=== PATIENT | male | born 1950 | race African-American/Black ===

== ENCOUNTER 2017-03-10 03:01 | Emergency (ER) | payer MEDICARE, MEDICAID ==
[~2017-03-10] VITALS: Ht 180.3 cm; Wt 106.6 kg
[~2017-03-10 03:01] MED LIST: ASPIR 8181 M1; ASPIRIN ADULT L81 M1 PO; LIPITOR20 MG PO; LIPITOR40 MG; MOTRIN PO; VICODIN 5/500 M1 TAB
[2017-03-10 03:32] VITALS: BP 120/72
--- NOTE | 2017-03-10 03:44 | NUR ---
PATIENT AMBULATED TO ER BED 3.
--- NOTE | 2017-03-10 04:05 | NUR ---
Patient being evaluated by physician at bedside with orders and carried out.
[2017-03-10] MEDS ORDERED: METOCLOPRAMIDE 10 MG/2 ML INJ VIAL IM ONE (04:10)
[2017-03-10] MEDS ORDERED: KETOROLAC 60 MG/2 ML VIAL IM ONE (04:10)
--- NOTE | 2017-03-10 04:44 | NUR ---
Patient discharged with v/s stable. Written and verbal after care instructions given and explained. Patient alert, oriented and verbalized understanding of instructions. Ambulatory with steady gait. All questions addressed prior to discharge. ID band removed. Patient advised to follow up with PMD. Rx of TRAMADOL 50MG AND ZOFRAN ODT 4MG given. Patient educated on indication of medication including possible reaction and side effects. Opportunity to ask questions provided and answered.
[2017-03-10 04:45] VITALS: BP 122/71
[2017-05-26] MEDS ORDERED: NITROGLYCE0.4 MG/Act SL (10:05)
[2017-05-26] MEDS ORDERED: LISINOPRIL2.5 M1 PO (10:05)
[2017-05-26] MEDS ORDERED: CARVEDILOL3.125 MG PO (10:05)
[2017-05-26] MEDS ORDERED: FOLGARD1 TAB PO (10:05)
[2017-05-26] MEDS ORDERED: NAPROXEN375 M2 PO (10:05)
[2017-05-27] MEDS ORDERED: NORCO 325 MG-51 TAB PO (08:26)
== END 2017-03-10 04:44 | disposition home or self-care (01) ==
LOC: MED 03:01
DX: K52.9 Noninfective gastroenteritis and colitis, unspecified (principal); I10 Essential (primary) hypertension
CPT/HCPCS: 96372; 99284; J1885; J2765

== ENCOUNTER 2017-05-25 20:44 | Inpatient (IN) | payer OTHER, MEDICARE ==
[~2017-05-25] VITALS: Ht 180.3 cm; Wt 88.9 kg
[~2017-05-25 20:44] MED LIST changes: +ASPI81CT27 PO; -ASPIR 8181 M1; -ASPIRIN ADULT L81 M1 PO; +ATOR20TA PO; -LIPITOR20 MG PO; -LIPITOR40 MG; -VICODIN 5/500 M1 TAB
[2017-05-25 20:48] VITALS: BP 160/94
--- NOTE | 2017-05-25 22:06 | NUR ---
Patient to bed 08.
--- NOTE | 2017-05-25 22:34 | NUR ---
Dr. Chavira evaluating patient at bedside.
[2017-05-25] MEDS ORDERED: ONDANSETRON 4 MG/2 ML VIAL IVP ONE (22:45)
[2017-05-25] MEDS ORDERED: MORPHINE SULFATE 4 MG/ML SYR IVP ONE (22:45)
[2017-05-25 23:07] LABS: APPEARANCE,URINE CLEAR (CLEAR); BILIRUBIN,URINE NEGATIVE (NEGATIVE); BLOOD, URINE NEGATIVE (NEGATIVE); COLOR,URINE YELLOW (YELLOW); LEUKOCYTE ESTERASE ,URINE NEGATIVE (NEGATIVE); NITRITE, URINE NEGATIVE (NEGATIVE); PH,URINE 6.5 (5.0-9.0); PROTEIN,URINE 1+ (NEGATIVE); UGLUCOSE NEGATIVE (NEGATIVE)
[2017-05-25 23:12] LABS: BASOPHILS # (AUTO) 0.1 K/uL (0.00-0.22); BASOPHILS % (AUTO) 1.3 % (0.0-2.0); EOSINOPHILS # (AUTO) 0.2 K/uL (0-0.4); EOSINOPHILS % (AUTO) 2.3 % (0.0-4.0); HEMOGLOBIN 15.1 g/dL (12.0-18.0); LYMPHOCYTES # (AUTO) 1.3 K/uL (2.0-11.5); LYMPHOCYTES % (AUTO) 14.7 % (20.5-51.1); MEAN CORPUSCULAR HEMOGLOBIN 28 pg (27-31); MEAN CORPUSCULAR HGB CONC 32 g/dL (33-37); MEAN CORPUSCULAR VOLUME 86 fL (80-94); MONOCYTES # (AUTO) 0.7 K/uL (0.8-1.0); MONOCYTES % (AUTO) 7.8 % (1.7-9.3); NEUTROPHILS # (AUTO) 6.7 K/uL (1.8-7.7); NEUTROPHILS % (AUTO) 73.9 % (42.2-75.2); PLATELET COUNT (AUTO) 205 K/uL (140-450); RED BLOOD CELL COUNT(AUTO) 5.48 MIL/uL (4.20-6.10); RED CELL DISTRIBUTION WIDTH 15.6 % (11.6-13.7)
[2017-05-25 23:14] LABS: CALCIUM 8.8 mg/dL (8.5-10.1); CARBON DIOXIDE 27.8 mmol/L (21-32); CREATININE 1.4 mg/dL (0.7-1.3); POTASSIUM 3.8 mmol/L (3.5-5.1)
[2017-05-25 23:21] LABS: BACTERIA,URINE OCCASSIONAL /HPF (None Seen); MUCUS,URINE 1+ /LPF (None Seen); RBC,URINE 3-10 (FEW) /HPF (0-5); SQUAMOUS EPITHELIAL CELL,UR 0-3 (FEW) /LPF (0-3 (FEW)); WBC,URINE 0-5 (RARE) /HPF (0-5)
[2017-05-25 23:23] LABS: ALBUMIN 4.3 g/dL (3.4-5.0); TOTAL BILIRUBIN 0.5 mg/dL (0.0-1.0); TOTAL PROTEIN, SERUM 7.6 g/dL (6.4-8.2)
[2017-05-26] MEDS ORDERED: NACL 0.9% 1,000 ML IV ONE (01:20)
[2017-05-26] MEDS ORDERED: ONDANSETRON 4 MG/2 ML VIAL IVP PRN (01:20)
[2017-05-26] MEDS ORDERED: ACETAMINOPHEN 325 MG TAB PO PRN (01:20)
[2017-05-26] MEDS ORDERED: KETOROLAC 30 MG/ML VIAL IVP ONE (01:20)
[2017-05-26] MEDS ORDERED: MORPHINE SULFATE 2 MG/ML SYR IVP PRN (01:20)
--- NOTE | 2017-05-26 02:25 | NUR ---
Kendra eaton in EDM - 05/26/17 at 0230 by [email or web address] Pt transferred to ICU via WHEEL CHAIR BY TECH. FLAVIA MODI IV HEP LOCK. PAIN 01/19.
[2017-05-26 02:30] VITALS: BP 124/85
--- NOTE | 2017-05-26 02:30 | NUR ---
Pt transferred to ICU via WHEEL CHAIR BY TECH. theresa GLASGOW. PAIN 01/19. IV HEP LOCK. REPORT GIVEN TO RITA SHIRLEY
--- NOTE | 2017-05-26 02:30 | NUR ---
ADMITTED A 67 YEARS OLD MALE TO THE MED-SURG UNIT. PATIENT AWAKE ALERT ORIENTED X4. NO S/S OF ACUTE DISTRESS NOTED, RESPIRATION EVEN AND UNLABORED. IV PATENT AND INTACT, FLUSHED WITH NORMAL SALINE. PATIENT DENIES PAIN AT THIS TIME. PLAN OF CARE DISCUSSED, VERBALIZED UNDERSTANDING. CALL LIGHT WITHIN REACH, SAFETY MEASURE ENSURED, WILL CONTINUE TO MONITOR.
[2017-05-26] MEDS: NACL 0.9% 1,000 ML IV SCH ×3 (03:04→21:18)
--- NOTE | 2017-05-26 04:30 | NUR ---
PATIENT ASLEEP IN BED, NO S/S OF ACUTE DISTRESS NOTED, RESPIRATION EVEN AND UNLABORED, SAFETY MEASURE ENSURED WILL CONTINUE TO MONITOR.
[2017-05-26] MEDS: MORPHINE SULFATE 4 MG/ML SYR IVP PRN ×2 (05:37→21:48)
--- NOTE | 2017-05-26 05:37 | NUR ---
PATIENT REPORTED ABDOMINAL PAIN 06/21. MEDICATED ORDERED. WILL CONTINUE TO MONITOR.
--- NOTE | 2017-05-26 06:01 | NUR ---
PATIENT RESTING BED, REASSESSED PAIN LEVEL, STATED," IT IS BETTER." NO S/S OF ACUTE DISTRESS NOTED, RESPIRATION EVEN AND UNLABORED, SAFETY MEASURE ENSURED WILL CONTINUE TO MONITOR.
[2017-05-26 06:37] LABS: HEMATOCRIT 46.8 % (36-52); HEMOGLOBIN 14.9 g/dL (12.0-18.0); MEAN CORPUSCULAR HEMOGLOBIN 28 pg (27-31); MEAN CORPUSCULAR HGB CONC 32 g/dL (33-37); MEAN CORPUSCULAR VOLUME 86 fL (80-94); PLATELET COUNT (AUTO) 204 K/uL (140-450); RED BLOOD CELL COUNT(AUTO) 5.43 MIL/uL (4.20-6.10); RED CELL DISTRIBUTION WIDTH 15.4 % (11.6-13.7)
[2017-05-26 06:45] LABS: ANION GAP 14.2 (8-16); CALCIUM 8.4 mg/dL (8.5-10.1); CARBON DIOXIDE 23.9 mmol/L (21-32); CREATININE 1.5 mg/dL (0.7-1.3); POTASSIUM 4.1 mmol/L (3.5-5.1); TOTAL BILIRUBIN 0.5 mg/dL (0.0-1.0); TOTAL PROTEIN, SERUM 7.3 g/dL (6.4-8.2)
[2017-05-26 07:07] LABS: BAND % (MANUAL) 1 % (0-8); BASOPHILS % (MANUAL) 0 % (0-2); EOSINOPHILS % (MANUAL) 0 % (0-4); LYMPHOCYTES % (MANUAL) 13 % (20-46); MONOCYTES % (MANUAL) 7 % (5-12); NEUTROPHILS % (MANUAL) 79 (43-65); PLATELET ESTIMATE ADEQUATE
--- NOTE | 2017-05-26 07:20 | NUR ---
ENDORSED PLAN OF CARE TO DAY RN. PATIENT IS IN STABLE CONDITION.
--- NOTE | 2017-05-26 07:20 | NUR ---
ASSUMED CONTINUITY OF CARE. NO SIGNS AND SYMPTOMS OF ACUTE DISTRESS NOTED. INITIAL ASSESSMENT DONE. KEEP COMFORTABLE ON BED. EXPLAINED DIAGNOSIS, PLAN OF CARE, PAIN MANAGEMENT TEACHING, USE OF CALL LIGHT/BED/TV/BATHROOM. VERBALIZED UNDERSTANDING. CALL LIGHT WITHIN REACH.
[2017-05-26 08:00] VITALS: BP 131/89
--- NOTE | 2017-05-26 08:00 | NUR ---
Patient's Plan of Care was discussed and reviewed with PAPER CONE DRYING MACHINE OPERATOR: BRANDON ZARATE
[2017-05-26] MEDS: ATORVASTATIN 20 MG TAB PO SCH (08:46)
[2017-05-26] MEDS: ASPIRIN 81 MG TAB.CHEW PO SCH (08:46)
[2017-05-26] MEDS: ENOXAPARIN 30 MG/0.3 ML SYR SUBQ SCH (08:47)
--- NOTE | 2017-05-26 09:40 | NUR ---
DR. JARA CAME, INFORMED OF PT. HOME MEDICATIONS CONTINUATION. DR. JARA SAID SHE WILL TAKE CARE OF IT.
[2017-05-26] MEDS ORDERED: [UNRECOGNIZED DRUG - CODE] PO (10:05)
[2017-05-26] MEDS ORDERED: VIT D2 PO (10:05)
[2017-05-26] MEDS ORDERED: LISI2.5T5 PO (10:05)
[2017-05-26] MEDS ORDERED: NITR0.4S14 SL (10:05)
[2017-05-26] MEDS ORDERED: MULT-1993 PO (10:05)
[2017-05-26] MEDS ORDERED: CARV3.122 PO (10:05)
[2017-05-26] MEDS ORDERED: HYDROcodone/APAP 10/325 MG 1 TAB TAB PO PRN ×2 (10:25)
--- NOTE | 2017-05-26 14:25 | NUR ---
DR. ARNOLD CAME, SEEN PT. AND CHECKED PT. CHART.
--- NOTE | 2017-05-26 18:53 | NUR ---
CALLED [facility] AND SPOKE TO MANASA REGARDING PT. CONSULT. PER BRADLEY LEDEZMA DR. 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 LEFT CALL BACK NUMBER AND MESSAGE. INFORMED CHARGE NURSE NESS SWENSON.
--- NOTE | 2017-05-26 19:06 | NUR ---
BEDSIDE REPORT GIVEN TO NETO SWENSON. IVF INFUSING WELL. IN STABLE CONDITION.
--- NOTE | 2017-05-26 19:10 | NUR ---
RECEIVED REPORTS FROM DAY RN. PATIENT RESTING IN BED, FAMILY MEMBERS AT BEDSIDE. PATIENT AWAKE ALERT ORIENTED X4, NO S/S OF ACUTE DISTRESS NOTED, IV PATENT AND INTACT, INFUSING NORMAL SALINE AT 100ML/HR. PER DAY SHIFT RN, JUN VAUGHN AWARE OF PATIENT'S HOME MEDICATIONS. CALL LIGHT WITHIN REACH, SAFETY MEASURE ENSURED, WILL CONTINUE TO MONITOR.
--- NOTE | 2017-05-26 22:07 | NUR ---
PATIENT STATED ABDOMINAL PAIN 06/21. BP 119/73, HR 64. PAIN MEDICATION GIVEN ORDERED, WILL CONTINUE TO MONITOR.
--- NOTE | 2017-05-26 23:35 | NUR ---
PATIENT ASLEEP IN BED, NO S/S OF ACUTE DISTRESS NOTED, RESPIRATION EVEN AND UNLABORED, CALL LIGHT WITHIN REACH, SAFETY MEASURE ENSURED, WILL CONTINUE TO MONITOR
[2017-05-27] VITALS: BP 117/80
--- NOTE | 2017-05-27 01:30 | NUR ---
PATIENT ASLEEP IN BED, NO S/S OF ACUTE DISTRESS NOTED, RESPIRATION EVEN AND UNLABORED, CALL LIGHT WITHIN REACH, SAFETY MEASURE ENSURED, WILL CONTINUE TO MONITOR.
[2017-05-27] MEDS: NACL 0.9% 1,000 ML IV SCH (02:08)
--- NOTE | 2017-05-27 02:15 | NUR ---
STRAINED 300ML URINE, NO STONE WAS COLLECTED.
--- NOTE | 2017-05-27 04:21 | NUR ---
PATIENT ASLEEP IN BED, NO S/S OF ACUTE DISTRESS NOTED, RESPIRATION EVEN AND UNLABORED, CALL LIGHT WITHIN REACH, SAFETY MEASURE ENSURED, WILL CONTINUE TO MONITOR.
--- NOTE | 2017-05-27 05:37 | NUR ---
STRAINED 350ML URINE, NO STONE WAS COLLECTED
[2017-05-27 05:49] LABS: BASOPHILS # (AUTO) 0.1 K/uL (0.00-0.22); BASOPHILS % (AUTO) 2.1 % (0.0-2.0); EOSINOPHILS # (AUTO) 0.3 K/uL (0-0.4); EOSINOPHILS % (AUTO) 4.5 % (0.0-4.0); HEMATOCRIT 41.1 % (36-52); HEMOGLOBIN 13.3 g/dL (12.0-18.0); LYMPHOCYTES # (AUTO) 1.4 K/uL (2.0-11.5); MEAN CORPUSCULAR HEMOGLOBIN 28 pg (27-31); MEAN CORPUSCULAR HGB CONC 33 g/dL (33-37); MEAN CORPUSCULAR VOLUME 86 fL (80-94); MONOCYTES # (AUTO) 0.5 K/uL (0.8-1.0); MONOCYTES % (AUTO) 7.1 % (1.7-9.3); NEUTROPHILS # (AUTO) 4.4 K/uL (1.8-7.7); NEUTROPHILS % (AUTO) 65.3 % (42.2-75.2); PLATELET COUNT (AUTO) 185 K/uL (140-450); RED BLOOD CELL COUNT(AUTO) 4.78 MIL/uL (4.20-6.10); RED CELL DISTRIBUTION WIDTH 15.8 % (11.6-13.7); WHITE BLOOD COUNT (AUTO) 6.7 K/uL (4.8-10.8)
[2017-05-27 06:31] LABS: ANION GAP 11.3 (8-16); CALCIUM 7.7 mg/dL (8.5-10.1); CARBON DIOXIDE 24.5 mmol/L (21-32); CREATININE 1.1 mg/dL (0.7-1.3); POTASSIUM 3.8 mmol/L (3.5-5.1)
--- NOTE | 2017-05-27 07:02 | NUR ---
PATIENT HAS BEEN SCREENED AND CATEGORIZED MODERATE NUTRITION RISK. PATIENT WILL BE SEEN WITHIN 3-5 DAYS OF ADMISSION. 05/28/17-05/30/17 KYLEE MARTINEZ MS, RDN
--- NOTE | 2017-05-27 07:17 | NUR ---
ENDORSED PLAN OF CARE TO DAY RN, PATIENT IS IN STABLE CONDITION.
[2017-05-27] MEDS ORDERED: MORPHINE SULFATE 2 MG/ML SYR IVP PRN (07:55)
[2017-05-27 08:00] VITALS: BP 119/79
[2017-05-27] MEDS ORDERED: ACET-2869 PO (08:26)
[2017-05-27] MEDS: ATORVASTATIN 20 MG TAB PO SCH (08:26)
[2017-05-27] MEDS: ASPIRIN 81 MG TAB.CHEW PO SCH (08:26)
[2017-05-27] MEDS: ENOXAPARIN 30 MG/0.3 ML SYR SUBQ SCH (08:28)
--- NOTE | 2017-05-27 09:00 | NUR ---
EXPLAINED ABOUT MD D/C ORDER, DIAGNOSIS, D/C INSTRUCTIONS AND TEACHING, MD D/C PRESCRIPTION LIST EDUCATION, PAIN MANAGEMENT TEACHING, MD FOLLOW-UP AND PHONE NUMBER WAS GIVEN, DIET. VERBALIZED UNDERSTANDING.
--- NOTE | 2017-05-27 10:29 | NUR ---
CALLED PT. SISTER -SOUTH AND INFORMED THAT PT. WILL BE D/C TODAY.
--- NOTE | 2017-05-27 11:25 | NUR ---
D/C VIA WHEELCHAIR ACCOMPANIED BY PT. SISTER -SOUTH. AWAKE, ALERT, AND ORIENTED X4. SPEECH CLEAR. NO C/O PAIN. NO SOB, NOTED. IN STABLE CONDITION. PT. OWN MEDS THAT WAS KEEPED IN PHARMACY WAS GIVEN TO PT. SISTER ABRAHAN. INFORMED CHARGE NURSE NESS SWENSON.
--- NOTE | 2017-05-28 12:43 | NUR ---
RETRO REVIEW FAXED ER REPORT AND H&P TO [facility] [phone] PHONE DEANA [phone]
== END 2017-05-27 11:25 | disposition home or self-care (01) | DRG 465 ==
LOC: MED 20:44 → MTU 05-26 01:21
PROVIDERS: ADMIT Hospitalist; ATTEND Hospitalist
DX: N20.0 Calculus of kidney (principal); I10 Essential (primary) hypertension; E78.5 Hyperlipidemia, unspecified; I20.9 Angina pectoris, unspecified; Z79.82 Long term (current) use of aspirin; Z79.899 Other long term (current) drug therapy
CPT/HCPCS: 36415; 80048; 80053; 81001; 82150; 83690; 85025; 87081; 96361; 96374; 96375; 99285; J1650; J1885; J2270; J2405; J7030

== ENCOUNTER 2017-07-10 14:05 | Emergency (ER) | payer MEDICARE, OTHER ==
[~2017-07-10] VITALS: Ht 180.3 cm; Wt 92.1 kg
[~2017-07-10 14:05] MED LIST changes: +ACET-2869 PO; +CARV3.122 PO; +LISI2.5T5 PO; -MOTRIN PO; +MULT-1993 PO; +NITR0.4S14 SL; +VIT D2 PO; +[UNRECOGNIZED DRUG - CODE] PO
--- NOTE | 2017-07-10 14:05 | NUR ---
Patient was BIBA at this time.
[2017-07-10 14:30] VITALS: BP 127/84
--- NOTE | 2017-07-10 14:54 | NUR ---
Patient was taken to bed 06 via gurney per EMS.
--- NOTE | 2017-07-10 15:00 | NUR ---
PATIENT BIBA DUE TO LLQ PAIN X TODAY. PT STATES HE FEELS NAUSEATED BUT DENIES V/D; SKIN IS PINK/WARM/DRY; AAOX4 WITH EVEN AND STEADY GAIT; LUNGS CLEAR BL; HR EVEN AND REGULAR; PT DENIES ANY FEVER, CP, SOB, OR COUGH AT THIS TIME; PATIENT STATES PAIN OF 9/10 AT THIS TIME;PATIENT POSITIONED FOR COMFORT; HOB ELEVATED; BEDRAILS UP X2; BED DOWN.ALL MONITORS IN PLACED; ER MD MADE AWARE OF PT STATUS.
[2017-07-10] MEDS: KETOROLAC 30 MG/ML VIAL IVP ONE (15:10)
[2017-07-10 15:13] LABS: BASOPHILS # (AUTO) 0.2 K/uL (0.00-0.22); EOSINOPHILS # (AUTO) 0.3 K/uL (0-0.4); HEMATOCRIT 47.4 % (36-52); HEMOGLOBIN 14.8 g/dL (12.0-18.0); LYMPHOCYTES # (AUTO) 0.6 K/uL (2.0-11.5); MEAN CORPUSCULAR HEMOGLOBIN 27 pg (27-31); MEAN CORPUSCULAR HGB CONC 31 g/dL (33-37); MEAN CORPUSCULAR VOLUME 86 fL (80-94); MONOCYTES # (AUTO) 0.5 K/uL (0.8-1.0); NEUTROPHILS # (AUTO) 3.5 K/uL (1.8-7.7); PLATELET COUNT (AUTO) 213 K/uL (140-450); RED BLOOD CELL COUNT(AUTO) 5.51 MIL/uL (4.20-6.10); RED CELL DISTRIBUTION WIDTH 14.8 % (11.6-13.7); WHITE BLOOD COUNT (AUTO) 5.1 K/uL (4.8-10.8)
[2017-07-10 15:25] LABS: APPEARANCE,URINE HAZY (CLEAR); BILIRUBIN,URINE NEGATIVE (NEGATIVE); BLOOD, URINE 3+ (NEGATIVE); COLOR,URINE YELLOW (YELLOW); LEUKOCYTE ESTERASE ,URINE NEGATIVE (NEGATIVE); NITRITE, URINE NEGATIVE (NEGATIVE); PH,URINE 5.5 (5.0-9.0); UGLUCOSE NEGATIVE (NEGATIVE)
[2017-07-10 15:28] LABS: RBC,URINE TOO NUMEROUS TO COUN /HPF (0-5); WBC,URINE 0-5 /HPF (0-5)
[2017-07-10 15:28] LABS: ANION GAP 13.5 (8-16); CARBON DIOXIDE 24.2 mmol/L (21-32); POTASSIUM 3.7 mmol/L (3.5-5.1)
[2017-07-10 15:35] LABS: ALBUMIN 3.9 g/dL (3.4-5.0); TOTAL BILIRUBIN 0.4 mg/dL (0.0-1.0)
[2017-07-10] MEDS: MORPHINE SULFATE 4 MG/ML SYR IVP ONE (17:18)
[2017-07-10 17:40] VITALS: BP 126/74
--- NOTE | 2017-07-10 17:40 | NUR ---
Patient discharged with v/s stable. Written and verbal after care instructions given and explained. Patient alert, oriented and verbalized understanding of instructions. Ambulatory with steady gait. All questions addressed prior to discharge. ID band removed. Patient advised to follow up with PMD. Rx of NORCO AND ZOFRAN given. Patient educated on indication of medication including possible reaction and side effects. Opportunity to ask questions provided and answered.
== END 2017-07-10 17:40 | disposition home or self-care (01) ==
LOC: MED 14:05
DX: N20.0 Calculus of kidney (principal); I10 Essential (primary) hypertension; Z79.899 Other long term (current) drug therapy
CPT/HCPCS: 36415; 74177; 80053; 81001; 83690; 85025; 96374; 96375; 99285; J1885; J2270; Q9967

== ENCOUNTER 2018-01-03 08:15 | Emergency (ER) | payer MEDICARE, OTHER ==
[~2018-01-03] VITALS: Ht 180.3 cm; Wt 93.2 kg
[~2018-01-03 08:15] MED LIST changes: -ASPI81CT27 PO; +ASPI81CT95 PO; +NAPR-1641 PO; -[UNRECOGNIZED DRUG - CODE] PO
[2018-01-03 08:26] VITALS: BP 130/76
--- NOTE | 2018-01-03 08:26 | NUR ---
PT AMBULATES TO BED 3
--- NOTE | 2018-01-03 08:27 | NUR ---
67/M BIB SISTER C/O COUGH , SORE THROAT & MID CHEST PAIN X 5 DAYS. PT STATES HAS N & D TODAY. SKIN IS PINK/WARM/DRY; AAOX4 WITH EVEN AND STEADY GAIT; LUNGS CLEAR BL; PT DENIES ANY FEVER, CP, SOB, OR COUGH AT THIS TIME; PATIENT STATES PAIN OF 0/10 AT THIS TIME; PATIENT POSITIONED FOR COMFORT; HOB ELEVATED; BEDRAILS UP X2; BED DOWN. ER MD MADE AWARE OF PT STATUS.
--- NOTE | 2018-01-03 08:35 | NUR ---
Patient being evaluated by DR HANLEY at bedside.
[2018-01-03 08:52] VITALS: BP 115/73
--- NOTE | 2018-01-03 08:52 | NUR ---
Patient discharged with v/s stable. Written and verbal after care instructions given and explained. Patient alert, oriented and verbalized understanding of instructions. Ambulatory with steady gait. All questions addressed prior to discharge. ID band removed. Patient advised to follow up with PMD. Rx of PREDNISONE, ZOFRAN&NORCO given. Patient educated on indication of medication including possible reaction and side effects. Opportunity to ask questions provided and answered.
--- NOTE | 2018-01-03 08:53 | NUR ---
Kendra eaton in [facility] - 01/03/18 at 0854 by [email or web address] Patient being evaluated by DR HANLEY at bedside.
== END 2018-01-03 08:52 | disposition home or self-care (01) ==
LOC: MED 08:15
DX: R05 Cough (principal); R19.7 Diarrhea, unspecified; R50.9 Fever, unspecified; I10 Essential (primary) hypertension; Z79.899 Other long term (current) drug therapy; Z79.82 Long term (current) use of aspirin; Z87.442 Personal history of urinary calculi
CPT/HCPCS: 99283

== ENCOUNTER 2019-09-06 21:41 | Emergency (ER) | payer MEDICARE, OTHER ==
[~2019-09-06] VITALS: Ht 180.3 cm; Wt 92.5 kg
[~2019-09-06 21:41] MED LIST changes: -ACET-2869 PO; +HYDR-5122 PO
[2019-09-06 21:45] VITALS: BP 129/77
--- NOTE | 2019-09-06 21:45 | NUR ---
TO BED # 09 AMBULATORY
[2019-09-06] MEDS ORDERED: KETOROLAC 60 MG/2 ML VIAL IM ONE (22:00)
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
[2019-09-06 22:27] VITALS: BP 129/77
== END 2019-09-06 22:27 | disposition home or self-care (01) ==
LOC: MED 21:41
DX: S13.9XXA Sprain of joints and ligaments of unspecified parts of neck, initial encounter (principal); I10 Essential (primary) hypertension; Z87.442 Personal history of urinary calculi; Z79.82 Long term (current) use of aspirin; Z79.899 Other long term (current) drug therapy; V89.2XXA Person injured in unspecified motor-vehicle accident, traffic, initial encounter; Y93.89 Activity, other specified; Y92.89 Other specified places as the place of occurrence of the external cause; Y99.8 Other external cause status
CPT/HCPCS: 96372; 99283; J1885

== ENCOUNTER 2020-10-17 15:07 | Observation (INO) | payer OTHER, MEDICARE ==
[~2020-10-17] VITALS: Ht 180.3 cm; Wt 96.2 kg
[~2020-10-17 15:07] MED LIST changes: -NITR0.4S14 SL; +NITR12SP3 SL
[2020-10-17 15:23] VITALS: BP 113/78
--- NOTE | 2020-10-17 15:27 | NUR ---
PT WAITING OUTSIDE IN COVID TENT FOR AN OPEN ISOLATION ROOM.
[2020-10-17] MEDS ORDERED: ONDANSETRON 4 MG/2 ML VIAL IVP ONE (15:50)
[2020-10-17] MEDS ORDERED: NACL 0.9% 1,000 ML IV SCH (15:50)
--- NOTE | 2020-10-17 16:03 | NUR ---
PT AMBULATED TO BED 8, STEADY GAIT.
[2020-10-17 16:26] LABS: BASOPHILS % (AUTO) 0.6 % (0.0-2.0); EOSINOPHILS % (AUTO) 0.7 % (0.0-4.0); HEMATOCRIT 56.7 % (36-52); HEMOGLOBIN 18.6 g/dL (12.0-18.0); LYMPHOCYTES # (AUTO) 1.1 K/uL (2.0-11.5); LYMPHOCYTES % (AUTO) 31.9 % (20.5-51.1); MEAN CORPUSCULAR HEMOGLOBIN 28 pg (27-31); MEAN CORPUSCULAR HGB CONC 33 g/dL (33-37); MEAN CORPUSCULAR VOLUME 83.7 fL (80-94); MONOCYTES # (AUTO) 0.6 K/uL (0.8-1.0); MONOCYTES % (AUTO) 15.8 % (1.7-9.3); NEUTROPHILS # (AUTO) 1.8 K/uL (1.8-7.7); PLATELET COUNT (AUTO) 193 K/uL (140-450); RED BLOOD CELL COUNT(AUTO) 6.77 MIL/uL (4.20-6.10); RED CELL DISTRIBUTION WIDTH 16.9 % (11.6-13.7); WHITE BLOOD COUNT (AUTO) 3.6 K/uL (4.8-10.8)
[2020-10-17 16:27] LABS: APPEARANCE,URINE CLEAR (CLEAR); BILIRUBIN,URINE 1+ (NEGATIVE); BLOOD, URINE 1+ (NEGATIVE); COLOR,URINE YELLOW (YELLOW); LEUKOCYTE ESTERASE ,URINE NEGATIVE (NEGATIVE); NITRITE, URINE NEGATIVE (NEGATIVE); PH,URINE 5.5 (5.0-9.0); UGLUCOSE NEGATIVE (NEGATIVE)
[2020-10-17 16:39] LABS: COARSE GRANULAR CASTS,URINE 0-10 /LPF (None Seen); WBC,URINE 0-5 /HPF (0-5)
[2020-10-17 16:40] LABS: ALBUMIN 4.8 g/dL (3.4-5.0); ANION GAP 18.8 (8-16); CARBON DIOXIDE 23.3 mmol/L (21-32); POTASSIUM 3.1 mmol/L (3.5-5.1); TOTAL BILIRUBIN 0.6 mg/dL (0.0-1.0)
[2020-10-17] MEDS ORDERED: NACL 0.9% 1,000 ML IV ONE (16:55)
[2020-10-17] MEDS ORDERED: POTASSIUM CHLORIDE 20% 40 MEQ/15 ML UDC PO ONE (16:55)
[2020-10-17] MEDS ORDERED: WARF-101 PO (17:21)
[2020-10-17] MEDS ORDERED: ATOR10TA PO (17:21)
--- NOTE | 2020-10-17 17:22 | NUR ---
FLU AND COVID PCR & DARWIN SWAB COLLECTED AND SENT TO LAB
[2020-10-17] MEDS ORDERED: cefTRIAXone 1,000 MG VIAL ONE (17:28)
[2020-10-17] MEDS ORDERED: POTASSIUM CHLORIDE 10 MEQ TABER PO PRN (17:45)
[2020-10-17] MEDS ORDERED: ONDANSETRON 4 MG/2 ML VIAL IVP PRN (17:45)
[2020-10-17] MEDS ORDERED: MAGNESIUM OXIDE 400 MG TAB PO PRN (17:45)
[2020-10-17] MEDS ORDERED: HYDROcodone/APAP 5/325 MG 1 TAB TAB PO PRN (17:45)
[2020-10-17] MEDS ORDERED: MAG SULF 2000 MG/WATER PREMIX 50 ML IV PRN (17:45)
[2020-10-17] MEDS ORDERED: KCL 20 MEQ/WATER INJ PREMIX 200 ML IV PRN (17:45)
[2020-10-17] MEDS ORDERED: ACETAMINOPHEN 325 MG TAB PO PRN (17:45)
[2020-10-17] MEDS: NACL 0.9% 1,000 ML IV SCH (18:12)
--- NOTE | 2020-10-17 19:17 | NUR ---
RECEIVED REPORT FROM FERN JAY FOR CONTINUATION OF CARE.
--- NOTE | 2020-10-17 19:39 | NUR ---
PT IS LAYING ON HIS LEFT SIDE, NOT IN ANY DISTRESS AT THIS TIME. BED IS LOCKED AND IN LOWEST POSITION. SIDE RAILSX1. WILL CONTINUE TO MONITOR.
--- NOTE | 2020-10-17 19:48 | NUR ---
CALLED LAB TO VERIFY THAT THEY JENNA THE BLOOD CULTURES FOR THE PT.
--- NOTE | 2020-10-17 20:30 | NUR ---
pt is resting with eyes closed. visible rise and fall of chest. pt is not in any acute distress at this time. bed is locked and in lowest position. side railsx1. will continue to monitor
--- NOTE | 2020-10-17 20:55 | NUR ---
REPORT CALLED TO [facility] FOR TRANSFER OF CARE TO MED-SURG. THE PTS BED 116 IS NOT READY TO RECEIVE THE PT AT THIS TIME.
--- NOTE | 2020-10-17 21:25 | NUR ---
CALLED [facility] TO SEE IF 116 IS CLEAN AND READY FOR THE PT
--- NOTE | 2020-10-17 21:28 | NUR ---
pt ambulated to the restroom with steady gait
--- NOTE | 2020-10-17 21:33 | NUR ---
pt ambulated back to ed room 6 with steady gait
--- NOTE | 2020-10-17 21:45 | NUR ---
Patient will be admitted to care of . Admited to MED-SURG. Will go to room 116. Belongings list completed. Report to [facility].
--- NOTE | 2020-10-17 21:45 | NUR ---
PT BROUGHT IN IN WHEELCHAIR. PT AMBULATED FROM CHAIR TO BED WITH STEADY GAIT. RECEIVED TELEPHONE REPORT FROM PRATIK AT 2124. PT IS AAOX4 BELARUSIAN SPEAKING ABLE TO MAKE NEEDS KNOWN. RESPIRATIONS ARE EQUAL AND UNLABORED ON ROOM AIR. LUNG SOUNDS ARE CLEAR. ABD IS ROUND, SOFT. BOWEL SOUNDS ACTIVE X4. LBM TODAY PER PATIENT NOTED RED ON STOOL AND TISSUE. INSTRUCT PT TO NOT FLUSH WHEN HAS BM. C/C N/V/D STARTED TODAY PER PT. DENIES ANY FEVER, COUGH OR SOB. DENIES ANY CONTACT WITH SOMEONE SICK. PT LIVES AT HOME WITH ROOM MATE. PT ADMITTED OBSERVATION. IV ON LAC 20G NS INFUSING AT 80ML/H. SKIN IS INTACT. MRSA SWAB COLLECTED AND SENT TO LAB. ORIENTED PT TO ROOM, CALL LIGHT AND STAFF. PT ON DROPLET ISO FOR R/O COVID. WAITING ON PCR. POC DISCUSSED WITH PT. PT VERBALIZED UNDERSTANDING. CALL LIGHT IS WITHIN REACH. WILL CONTINUE TO MONITOR.
[2020-10-17 22:00] VITALS: BP 104/70
--- NOTE | 2020-10-18 | NUR ---
ROUNDS MADE. PT SLEEPING COMFORTABLY IN BED WITH EYES CLOSED. CHEST RISE AND FALL NOTED. NO S/S OF DISTRESS. CALL LIGHT IS WITHIN REACH.
--- NOTE | 2020-10-18 02:03 | NUR ---
PT IS SLEEPING COMFORTABLY IN BED WITH EYES CLOSED. CHEST RISE AND FALL NOTED. CALL LIGHT IS WITHIN REACH.
[2020-10-18 04:00] VITALS: BP 117/65
--- NOTE | 2020-10-18 04:10 | NUR ---
VITAL SIGNS ARE WITHIN NORMAL LIMITS. ALL SAFETY MEASURES ARE IN PLACE. CALL LIGHT IS WITHIN REACH.
[2020-10-18] MEDS: NACL 0.9% 1,000 ML IV SCH ×2 (06:29→19:03)
--- NOTE | 2020-10-18 07:46 | NUR ---
GAVE BEDSIDE REPORT TO DAY RN. PT ENDORSED IN STABLE CONDITION.
[2020-10-18 08:00] VITALS: BP 129/76
[2020-10-18] MEDS: DOCUSATE SODIUM 100 MG GELCAP PO SCH (08:01)
--- NOTE | 2020-10-18 08:01 | NUR ---
MELLISA MEDICATIONS GIVEN PER ORDERS. MED EDUCATION GIVEN. PT VERBALIZED UNDERSTANDING. ALL NEEDS MET. CALL LIGHT IS WITHIN REACH.
--- NOTE | 2020-10-18 09:00 | NUR ---
RECEIVED REPORT FROM [facility] ELECTRONIC TEST TECHNICIAN FOR CONTINUITY OF CARE. PATIENT AWAKE A/OX4 NO S/S OF RESP DISTRESS NOTED NO COMPLAIN OF PAIN . ABLE TO MAKE NEEDS KNOWN . IV SITE LEFT AC GAUGE 20 INTACT AND PATENT. IVF INFUSING WELL. NO MEDS DUE TO BE GIVEN . VITALS STABLE WILL CONTINUE TO MONITOR.
[2020-10-18 09:02] LABS: ALBUMIN 3.7 g/dL (3.4-5.0); ANION GAP 13.7 (8-16); CARBON DIOXIDE 21.1 mmol/L (21-32); POTASSIUM 3.8 mmol/L (3.5-5.1); TOTAL BILIRUBIN 0.4 mg/dL (0.0-1.0)
--- NOTE | 2020-10-18 09:07 | NUR ---
PATIENT HAS BEEN SCREENED AND CATEGORIZED HIGH NUTRITION RISK. PATIENT WILL BE SEEN WITHIN 1-2 DAYS OF ADMISSION. 10/18/20-10/19/[address]
[2020-10-18 09:34] LABS: BASOPHILS % (AUTO) 0.3 % (0.0-2.0); EOSINOPHILS % (AUTO) 1.1 % (0.0-4.0); HEMATOCRIT 49.3 % (36-52); LYMPHOCYTES # (AUTO) 0.8 K/uL (2.0-11.5); LYMPHOCYTES % (AUTO) 25.6 % (20.5-51.1); MEAN CORPUSCULAR HEMOGLOBIN 27 pg (27-31); MEAN CORPUSCULAR HGB CONC 32 g/dL (33-37); MONOCYTES # (AUTO) 0.4 K/uL (0.8-1.0); MONOCYTES % (AUTO) 13.1 % (1.7-9.3); NEUTROPHILS # (AUTO) 1.9 K/uL (1.8-7.7); NEUTROPHILS % (AUTO) 59.9 % (42.2-75.2); PLATELET COUNT (AUTO) 157 K/uL (140-450); RED BLOOD CELL COUNT(AUTO) 5.87 MIL/uL (4.20-6.10); RED CELL DISTRIBUTION WIDTH 16.7 % (11.6-13.7); WHITE BLOOD COUNT (AUTO) 3.1 K/uL (4.8-10.8)
--- NOTE | 2020-10-18 12:00 | NUR ---
VITALS STABLE NO DISTRESS NOTED DENIES AND PAIN PCR IS PENDING STABLE CONDITION AT THIS TIME.
--- NOTE | 2020-10-18 14:00 | NUR ---
DR QUICK VISITED PATIENT , NO NEW ORDERS PCR STILL PENDING. STABLE CONDITION
[2020-10-18 16:00] VITALS: BP 126/78
--- NOTE | 2020-10-18 18:45 | NUR ---
NEW IV BAG CHANGED NS RUNNING AT THE RATE OF 80/HR
--- NOTE | 2020-10-18 19:07 | NUR ---
VITALS STABLE PCR POSITIVE NOTIFIED DR QUICK WILL CONTINUE TO MONITOR ENDORSE THE CARE TO AIR DRIER MACHINE OPERATOR
--- NOTE | 2020-10-18 19:45 | NUR ---
RECEIVED REPORT AT BEDSIDE FROM RN DAYSHIFT NURSE AT BEDSIDE FOR CONTINUITY OF CARE, PT IN STABLE CONDITION.
[2020-10-18 20:00] VITALS: BP 118/69
--- NOTE | 2020-10-18 20:30 | NUR ---
PT IN BED RESTING RESPIRATIONS ARE EVEN AND UNLABORED ON ROOM AIR. V/S FOLLOWS: T 97.0 P 81 R 20 B/P 118/69 02 96% ON ROOM AIR. ALL UNIVERSAL PRECAUTIONS IN PLACE.
--- NOTE | 2020-10-18 21:30 | NUR ---
FOOD WAS DELIVERED BY FAMILY AND DROPPED OFF AT LOBBY. FOOD WAS PICKED UP BY STAFF AND DELIVERED TO PT. PT SAT UP IN BED NO COMPLAINTS OR S/S OF PAIN AND DISTRESS ND BEGAN CONSUMING THE FOOD. ALL UNIVERSAL FALLS PRECAUTIONS IN PLACE.
[2020-10-19] VITALS: BP 109/63
--- NOTE | 2020-10-19 | NUR ---
PT IN BED RESTING WITH EYES CLOSED BUT AROUSABLE TO NAME, V/S FOLLOWS; T 97.1 P 68 R 18 B/P 109/63 02 97% ON ROOM AIR. NORMAL SALINE RUNNING ORDERED, IV SITE INTACT AND ASYMPTOMATIC NO C/O VOICED AT THIS TIME ALL DROPLET AND UNIVERSAL FALLS PRECAUTIONS IN PLACE.
--- NOTE | 2020-10-19 03:05 | NUR ---
PT SAID HE ATE ABOUT 1/2 THE FOOD DELIVERED AND THEN LATER BECAME NAUSEA AND VOMITED. PT WAS GIVEN IVP ZOFRAN FOR NAUSEA AND VOMITING.
[2020-10-19 04:00] VITALS: BP 135/82
--- NOTE | 2020-10-19 06:09 | NUR ---
PT UP AND SHOWERED INDEPENDENTLY, NO C/O VOICED IV SITE INTACT AND RUNNING N/S AT 80MLS/HR. PT RESPIRATIONS EVEN AND UNLABORED ON ROOM AIR . V/S SATBLE ALL UNIVERSAL FALLS PRECAUTIONS IN PLACE.
--- NOTE | 2020-10-19 08:00 | NUR ---
RECEIVED REPORT FROM COPPER PLATE PRINTER FOR CONTINUITY OF CARE. PATIENT ALERT AWAKE ORIENTED X4, NOT IN ANY NDISTRESS NOTED. PATIENT IS COVID POSITIVE. ISOLATION PRECAUTION OBSERVED. WITH HEPLOCK DRY AND INTACT. DENIES PAIN AND SOB. ON RA SATURATING 96%. NEEDS ATTENDED. WILL CONTINUE TO MONITOR.
[2020-10-19 08:13] LABS: BASOPHILS # (AUTO) 0.1 K/uL (0.00-0.22); BASOPHILS % (AUTO) 0.7 % (0.0-2.0); EOSINOPHILS # (AUTO) 0.1 K/uL (0-0.4); EOSINOPHILS % (AUTO) 0.8 % (0.0-4.0); HEMATOCRIT 49.9 % (36-52); HEMOGLOBIN 16.4 g/dL (12.0-18.0); LYMPHOCYTES # (AUTO) 1.5 K/uL (2.0-11.5); LYMPHOCYTES % (AUTO) 13.8 % (20.5-51.1); MEAN CORPUSCULAR HEMOGLOBIN 30 pg (27-31); MEAN CORPUSCULAR HGB CONC 33 g/dL (33-37); MEAN CORPUSCULAR VOLUME 92.2 fL (80-94); MONOCYTES # (AUTO) 1.1 K/uL (0.8-1.0); MONOCYTES % (AUTO) 10.1 % (1.7-9.3); NEUTROPHILS % (AUTO) 74.6 % (42.2-75.2); PLATELET COUNT (AUTO) 303 K/uL (140-450); RED BLOOD CELL COUNT(AUTO) 5.41 MIL/uL (4.20-6.10); RED CELL DISTRIBUTION WIDTH 15.5 % (11.6-13.7); WHITE BLOOD COUNT (AUTO) 10.7 K/uL (4.8-10.8)
[2020-10-19 08:38] LABS: ALBUMIN 2.9 g/dL (3.4-5.0); ANION GAP 11.2 (8-16); CARBON DIOXIDE 31.1 mmol/L (21-32); CREATININE 1.2 mg/dL (0.6-1.3); MAGNESIUM 1.8 mg/dL (1.8-2.4); POTASSIUM 4.3 mmol/L (3.5-5.1); TOTAL BILIRUBIN 1.7 mg/dL (0.0-1.0)
[2020-10-19 08:39] LABS: PROTHROMBIN TIME 11.1 secs (10.8-13.4)
[2020-10-19] MEDS: DOCUSATE SODIUM 100 MG GELCAP PO SCH (10:33)
[2020-10-19] MEDS: NACL 0.9% 1,000 ML IV SCH (10:33)
--- NOTE | 2020-10-19 11:38 | NUR ---
SOCIAL WORK NOTE: Patient's Orientation Unable To Assess Information Provided By SOUTH LINDA - SISTER/CAREGIVER Comments SW WAS UNABLE TO MEET PATIENT AT BEDSIDE DUE TO MEDICAL CONDITION. SW COMPLETED ASSESSMENT WITH SISTER. Principal Technical Writer, Realtionship and Phone Number SOUTH LINDA SISTER/CAREGIVER [phone] Healthcare Power of Flat Grinder Operator No Does Patient Have a POLST No Identifying Problems No Social Work Triggers Is A Social Work Consult Needed No Mandate Report Filed No Explanation Of Identifying Problems PATIENT IS A 70-YEAR-OLD MALE ADMITTED FOR ACUTE KIDNEY INJURY. PATIENT HAS PMHX OF CARDIAC DISORDERS, HYPERTENSION, AND RENAL DISEASE. Admitted From Home Pre-Admission Level Of Functioning Status Assist With ADL Level Of Functioning Comment PATIENT RECEIVES ASSISTANCE WITH PREPARING MEALS, CLEANING, GROCERY SHOPPING, AND DOCTOR'S APPOINTMENTS. Prior Resources/Services Used In Last [address] [facility] Prior Resources/Service Comments PATIENT RECEIVES 146 HOURS MONTHLY FROM [facility]. Prior DME No Prior DME Used Dialysis Comments N/A Living Situation Apartment Lives With Friend/Other Rents A Room Other Living Situation/Comment [place] LIVES WITH A ROOMMATE PER SISTER. Patient Had Caregiver Yes Name and Contact Number Of Designated Caregiver SOUTH LINDA - [phone] Home Support No Caregiver Issues Financial Issues No Known Financial Issue Referral To The Financial Counselor Needed No Factors/Needs No D/C Needs Identified Explanation And Or Other Factors Affecting/Possible DC Needs PATIENT'S SISTER STATED SHE WOULD PROVIDE TRANSPORTATION FOR PATIENT HOME. Pt/Rep Participated In Discharge Plan Yes Patient/Family Agress With Discharge Plan Yes Discharge Plan Comments TENTATIVE DISCHARGE PLAN IS FOR PATIENT TO RETURN HOME. DC Plan Status Initiated
--- NOTE | 2020-10-19 12:00 | NUR ---
PATIENT RESTING IN BED, NO C/O PAIN AND SOB. WILL CONTINUE TO MONITOR.
--- NOTE | 2020-10-19 15:07 | NUR ---
DC PLANNIN YRS OLD MALE PATIENT WAS ADMITTED FROM HOME WITH A DX OF ACUTE KIDNEY INJURY. PT HAS A HX OF HTN, HYPERCHOLESTEROLEMIA AND MS . CXR SHOWED MINIMAL RIGHT BASILAR ATELECTASIS. RAPID COVID TEST NEGATIVE PCR IS POSITIVE. BLOOD CULTURE PENDING. PT IS ON ROOM AIR SATING 97%. DC PLAN TO GO HOME WHEN STABLE CM TO FOLLOW. Addendum: 10/19/20 at 1614 by Jalyn Multani CM DC GRIEF COUNSELOR: FAXED ORDER FOR HOME HEALTH TO [facility] Addendum: 10/19/20 at 1640 by Jalyn Multani CM DC GRIEF COUNSELOR: RUBENS ZUNIGA AT [facility] WE CAN SEND THE REFERRAL FOR HOME HEALTH SAFETY EVAL TO ANY HOME HEALTH AGENCY. FAXED TO [employer]
--- NOTE | 2020-10-19 15:29 | NUR ---
10/19/20 RD INITIAL ASSESSMENT COMPLETED PLEASE REFER TO NUTRITION ASSESSMENT UNDER CARE ACTIVITY FOR ESTIMATED NUTRITIONAL NEEDS. 1. CONTINUE MECHANICAL SOFT CARDIAC DIET TOLERATED 2. CONTINUE ENSURE CLEAR TID IF PO INTAKE <75% 3. RD TO FOLLOW-UP 3-5 DAYS, MODERATE RISK SARAH HORTON, RD
[2020-10-19] MEDS ORDERED: LISI2.5T5 PO (15:30)
[2020-10-19] MEDS ORDERED: ASPI81CT95 PO (15:30)
[2020-10-19] MEDS ORDERED: APIX5TAB PO (15:30)
[2020-10-19] MEDS ORDERED: ATOR20TA PO (15:30)
[2020-10-19] MEDS ORDERED: CARV3.122 PO (15:30)
--- NOTE | 2020-10-19 17:00 | NUR ---
SEEN BY DR. QUICK WITH ORDER FOR DC TODAY AND FOR HOME SAFETYARLET.,CM AWARE.
--- NOTE | 2020-10-19 17:25 | NUR ---
PATIENT DC VIA WHEELCHAIR WITH DC INSTRUCTION AND PRESCRIPTION GIVEN AND VERBALIZED UNDERSTANDING. IN STABLE CONDITION.
== END 2020-10-19 17:20 | disposition home or self-care (01) ==
LOC: MED 15:07 → MTU 17:39
PROVIDERS: ADMIT Hospitalist; ATTEND Hospitalist
DX: U07.1 COVID-19 (principal); N17.9 Acute kidney failure, unspecified; R11.2 Nausea with vomiting, unspecified; I10 Essential (primary) hypertension; E78.5 Hyperlipidemia, unspecified; I48.0 Paroxysmal atrial fibrillation; E87.6 Hypokalemia; N39.0 Urinary tract infection, site not specified; B34.9 Viral infection, unspecified; Z91.14 Patient's other noncompliance with medication regimen; Z79.01 Long term (current) use of anticoagulants; Z79.899 Other long term (current) drug therapy
CPT/HCPCS: 36415; 71045; 80053; 81001; 83690; 83735; 85025; 85610; 87040; 87081; 87426; 87804; 96361; 96365; 96375; 96376; 99285; G0378; J0696; J2405; U0003

== ENCOUNTER 2020-10-23 15:42 | Emergency (ER) | payer MEDICARE, OTHER ==
[~2020-10-23] VITALS: Ht 180.3 cm; Wt 96.2 kg
[~2020-10-23 15:42] MED LIST changes: +APIX5TAB PO; -NAPR-1641 PO; -VIT D2 PO; +WARF-101 PO
[2020-10-23 18:19] VITALS: BP 112/83
--- NOTE | 2020-10-23 18:27 | NUR ---
BIBA FROM HOME C/O FEVER,COUGH X TODAY. COVID TESTED+. ORAL TEMP 101.3 AT THIS TIME. PMH: CARDIAC DISORDER, HTN, RENAL STONE.
[2020-10-23] MEDS ORDERED: ACETAMINOPHEN EXTRA STRENGTH 500 MG TAB PO ONE (18:30)
[2020-10-23 18:37] LABS: BASOPHILS % (AUTO) 0.6 % (0.0-2.0); EOSINOPHILS % (AUTO) 0.1 % (0.0-4.0); HEMATOCRIT 52.2 % (36-52); HEMOGLOBIN 17.3 g/dL (12.0-18.0); LYMPHOCYTES # (AUTO) 0.7 K/uL (2.0-11.5); LYMPHOCYTES % (AUTO) 15.6 % (20.5-51.1); MEAN CORPUSCULAR HEMOGLOBIN 27 pg (27-31); MEAN CORPUSCULAR HGB CONC 33 g/dL (33-37); MEAN CORPUSCULAR VOLUME 81.9 fL (80-94); MONOCYTES # (AUTO) 0.6 K/uL (0.8-1.0); MONOCYTES % (AUTO) 12.8 % (1.7-9.3); NEUTROPHILS # (AUTO) 3.2 K/uL (1.8-7.7); NEUTROPHILS % (AUTO) 70.9 % (42.2-75.2); PLATELET COUNT (AUTO) 145 K/uL (140-450); RED BLOOD CELL COUNT(AUTO) 6.38 MIL/uL (4.20-6.10); RED CELL DISTRIBUTION WIDTH 16.5 % (11.6-13.7); WHITE BLOOD COUNT (AUTO) 4.6 K/uL (4.8-10.8)
[2020-10-23 18:53] LABS: ALBUMIN 3.7 g/dL (3.4-5.0); ANION GAP 14.9 (8-16); CARBON DIOXIDE 21.9 mmol/L (21-32); CREATININE 1.3 mg/dL (0.6-1.3); POTASSIUM 3.8 mmol/L (3.5-5.1); TOTAL BILIRUBIN 0.7 mg/dL (0.0-1.0)
--- NOTE | 2020-10-23 19:13 | NUR ---
Pt report given to FLORENCIO SHIRLEY. Transfer of care at this time.
--- NOTE | 2020-10-23 19:30 | NUR ---
RECEIVED PT AWAKE AND ALERT IN BED 3. VOICES NO COMPLAINTS AT THIS TIME.
--- NOTE | 2020-10-23 20:45 | NUR ---
AWAKE, SPEAKING WITH FRIEND ON PHONE. PT ENCOURAGED TO STAND AND BEDSIDE AND INCREASE MOVEMENT. O2 SAT WILL BE MONITORED.
--- NOTE | 2020-10-23 21:00 | NUR ---
STOOD AT BEDSIDE. O2 SAT TO 92%. PT TOLERATED WELL
--- NOTE | 2020-10-23 22:26 | NUR ---
DR. PERLA AT BEDSIDE DISCUSSING PLAN OF CARE WITH PT
--- NOTE | 2020-10-23 23:00 | NUR ---
Patient discharged with v/s stable. Written and verbal after care instructions given and explained. Patient verbalized understanding. Ambulatory with steady gait. All questions addressed prior to discharge. Advised to follow up with PMD.
== END 2020-10-23 23:00 | disposition home or self-care (01) ==
LOC: MED 15:42
DX: U07.1 COVID-19 (principal); R06.02 Shortness of breath; R11.10 Vomiting, unspecified; I10 Essential (primary) hypertension; Z87.442 Personal history of urinary calculi; Z79.899 Other long term (current) drug therapy; Z79.82 Long term (current) use of aspirin
CPT/HCPCS: 36415; 71045; 80053; 84484; 85025; 93005; 99285

== ENCOUNTER 2020-10-25 13:24 | Inpatient (IN) | payer OTHER, MEDICARE, SELFPAY ==
[~2020-10-25] VITALS: Ht 182.9 cm; Wt 94.8 kg
--- NOTE | 2020-10-25 13:56 | NUR ---
Patient BIBA ALS, transferred to bed 4. RN evaluating patient at bedside.
[2020-10-25 14:01] VITALS: BP 136/96
[2020-10-25] MEDS ORDERED: DEXAMETHASONE 4 MG/ML VIAL IVP ONE ×2 (14:05→15:40)
[2020-10-25] MEDS ORDERED: AZITHROMYCIN 250 MG TAB PO ONE ×2 (14:05→15:40)
--- NOTE | 2020-10-25 14:05 | NUR ---
MARIA D ALS from home with COVID-19 symptoms, tested POSITIVE on ~ 10.17.2020 and states he's been in the hospital twicw since diagnosis. Arrived on O2 at 100% 15 l/min non-rebreather mask. A, A, O x4, cooperative, in NAD. Resp even and slightly labored, using abdominal muscles, HOB at 90 degrees VVS, cardiac nurse with sinus tachycardia @ 115 BPM Moving all exts w/o difficulty, NO IV Awaiting evaluation/examination by MD, will continue to monitor
--- NOTE | 2020-10-25 14:27 | NUR ---
Blood drawn and blood cultures x 2
[2020-10-25 14:50] LABS: BASOPHILS % (AUTO) 0.1 % (0.0-2.0); HEMATOCRIT 52.4 % (36-52); HEMOGLOBIN 17.4 g/dL (12.0-18.0); LYMPHOCYTES # (AUTO) 0.4 K/uL (2.0-11.5); MEAN CORPUSCULAR HEMOGLOBIN 28 pg (27-31); MEAN CORPUSCULAR HGB CONC 33 g/dL (33-37); MEAN CORPUSCULAR VOLUME 83.1 fL (80-94); MONOCYTES # (AUTO) 0.4 K/uL (0.8-1.0); MONOCYTES % (AUTO) 6.8 % (1.7-9.3); NEUTROPHILS # (AUTO) 5.4 K/uL (1.8-7.7); NEUTROPHILS % (AUTO) 86.1 % (42.2-75.2); PLATELET COUNT (AUTO) 167 K/uL (140-450); RED BLOOD CELL COUNT(AUTO) 6.31 MIL/uL (4.20-6.10); RED CELL DISTRIBUTION WIDTH 16.6 % (11.6-13.7); WHITE BLOOD COUNT (AUTO) 6.3 K/uL (4.8-10.8)
[2020-10-25 15:05] LABS: PROTHROMBIN TIME 11.7 secs (10.8-13.4)
[2020-10-25 15:18] LABS: C-REACTIVE PROTEIN QUANT 13.7 mg/dL (0.0-0.9)
--- NOTE | 2020-10-25 15:32 | NUR ---
Lactic acid 3.2, troponin 0.086, CK 938--critical values received from lab. Dr Arango made aware
[2020-10-25] MEDS ORDERED: cefTRIAXone 1,000 MG VIAL ONE (15:34)
[2020-10-25 15:42] LABS: ALBUMIN 3.4 g/dL (3.4-5.0); ANION GAP 20.3 (8-16); CARBON DIOXIDE 21.5 mmol/L (21-32); CREATININE 1.5 mg/dL (0.6-1.3); POTASSIUM 3.8 mmol/L (3.5-5.1); TOTAL BILIRUBIN 0.9 mg/dL (0.0-1.0)
[2020-10-25 16:01] LABS: CKMB RELATIVE INDEX 0.3 (0.0-2.5); CREATINE KINASE MB 3.1 ng/mL (0-3.6)
[2020-10-25] MEDS ORDERED: POTASSIUM CHLORIDE 10 MEQ TABER PO PRN (16:25)
--- NOTE | 2020-10-25 17:30 | NUR ---
Critical lab value troponin 0.094 received from lab, Dr. Arango made aware.
--- NOTE | 2020-10-25 18:04 | NUR ---
Patient able to produce urine, dipped charted and specimen sent to lab
--- NOTE | 2020-10-25 18:17 | NUR ---
Patient accidently pulled out IV #[id number] Addendum: 10/25/20 at 1918 by [id number] Patient accidently pulled out #20g IV from left AC. Not receiving IVF or IVPB at the time
[2020-10-25] MEDS ORDERED: remdesivir COMMUNICATION ORDER 1 EA MISC MC PRN (18:25)
--- NOTE | 2020-10-25 19:39 | NUR ---
report received from anita kevin. transfer of care at this time.
--- NOTE | 2020-10-25 19:39 | NUR ---
Detailed report given to FERN [place] night shift supervisor. Questions answered, orders and meds reviewed.
--- NOTE | 2020-10-25 20:05 | NUR ---
pt is resting, equal rise and fall of chest wall. pt im stable condition. bed locked in lowest position, side rails x2. pt on crystalizer operator and pulse ox.
[2020-10-25] MEDS: APIXABAN 2.5 MG TAB PO SCH (21:33)
--- NOTE | 2020-10-25 22:50 | NUR ---
pt's sheets changed. pt assisted with repositioning. pt is in stable condition. bed locked in lowest position, side rails x2. pt on cardiac nurse specialist and pulse ox.
--- NOTE | 2020-10-26 | NUR ---
PT IS SLEEPING IN STABLE CONDITION. EQUAL RISE AND FALL OF CHEST WALL. SIDE RAILS X2 BED LOCKED IN LOWEST POSITION.
--- NOTE | 2020-10-26 02:00 | NUR ---
PT IS SLEEPING IN STABLE CONDITION. EQUAL RISE AND FALL OF CHEST WALL. SIDE RAILS X2 BED LOCKED IN LOWEST POSITION.
--- NOTE | 2020-10-26 02:50 | NUR ---
PT GIVEN ICED WATER PER REQUEST.
--- NOTE | 2020-10-26 04:40 | NUR ---
PT IS SLEEPING IN STABLE CONDITION. EQUAL RISE AND FALL OF CHEST WALL. ALL PT'S NEEDS MET AT THIS TIME. BED LOCKED IN LOWEST POSITION, SIDE RAILS X2.
--- NOTE | 2020-10-26 06:21 | NUR ---
PT IS SLEEPING IN STABLE CONDITION. EQUAL RISE AND FALL OF CHEST WALL. SIDE RAILS X2, BED LOCKED IN LOWEST POSITION.
--- NOTE | 2020-10-26 07:27 | NUR ---
report given to anita willson. transfer of care at this time.
[2020-10-26] MEDS ORDERED: NITROGLYCERIN 0.4 MG TAB SL PRN (07:30)
[2020-10-26 07:44] LABS: BASOPHILS % (AUTO) 0.2 % (0.0-2.0); HEMOGLOBIN 17.8 g/dL (12.0-18.0); LYMPHOCYTES # (AUTO) 0.5 K/uL (2.0-11.5); LYMPHOCYTES % (AUTO) 8.3 % (20.5-51.1); MEAN CORPUSCULAR HEMOGLOBIN 28 pg (27-31); MEAN CORPUSCULAR HGB CONC 33 g/dL (33-37); MEAN CORPUSCULAR VOLUME 83.2 fL (80-94); MONOCYTES # (AUTO) 0.4 K/uL (0.8-1.0); NEUTROPHILS # (AUTO) 5.3 K/uL (1.8-7.7); NEUTROPHILS % (AUTO) 85.5 % (42.2-75.2); PLATELET COUNT (AUTO) 187 K/uL (140-450); RED BLOOD CELL COUNT(AUTO) 6.49 MIL/uL (4.20-6.10); RED CELL DISTRIBUTION WIDTH 16.8 % (11.6-13.7); WHITE BLOOD COUNT (AUTO) 6.2 K/uL (4.8-10.8)
--- NOTE | 2020-10-26 07:49 | NUR ---
PT RESTING WITH EYES CLOSED, BREATHING EVEN AND UNLABORED. NO DISTRESS NOTED. REMAINS ON NRB @15L
[2020-10-26 08:08] LABS: ALBUMIN 3.2 g/dL (3.4-5.0); CARBON DIOXIDE 21.3 mmol/L (21-32); CREATININE 1.3 mg/dL (0.6-1.3); POTASSIUM 4.3 mmol/L (3.5-5.1); TOTAL BILIRUBIN 0.7 mg/dL (0.0-1.0)
[2020-10-26] MEDS ORDERED: remdesivir CLINICAL MONITORING 1 EA MISC MC PRN (08:20)
[2020-10-26] MEDS ORDERED: LISINOPRIL 2.5 MG PO SCH (09:00)
[2020-10-26] MEDS ORDERED: DEXAMETHASONE 4 MG/ML VIAL IM SCH (09:00)
[2020-10-26] MEDS ORDERED: REMDESIVIR (EUA) 200 MG in NACL 0.9% 100 ML IV SCH (09:30)
[2020-10-26] MEDS: APIXABAN 2.5 MG TAB PO SCH ×2 (09:54→21:57)
[2020-10-26] MEDS: carvediloL 3.125 MG TAB PO SCH ×2 (09:54→21:57)
[2020-10-26] MEDS: lisinopriL 5 MG TAB PO SCH (09:55)
--- NOTE | 2020-10-26 10:00 | NUR ---
PT ALERT AND AWAKE, BREATHING EVEN AND UNLABORED
--- NOTE | 2020-10-26 12:00 | NUR ---
COVID SWAB SENT TO LAB
--- NOTE | 2020-10-26 12:00 | NUR ---
PT ALERT AND AWAKE, BREATHING EVEN AND UNLABORED
[2020-10-26] MEDS ORDERED: ALBUTEROL HFA MDI 90 MCG/ACTUATION 8 GM INH PRN (12:10)
--- NOTE | 2020-10-26 14:00 | NUR ---
PT ALERT AND AWAKE, BREATHING EVEN AND UNLABORED
--- NOTE | 2020-10-26 14:19 | NUR ---
ATTEMPTED TO CALL BLOOD BANK FOR 2ND TIME REGARDING ORDERED BLOOD, WILL WAIT FOR CALL BACK.
--- NOTE | 2020-10-26 14:22 | NUR ---
SOCIAL WORK NOTE: Patient's Orientation Unable To Assess Information Provided By SOUTH LINDA Comments SW WAS UNABLE TO MEET PATIENT AT BEDSIDE DUE TO MEDICAL CONDITION. SW COMPLETED ASSESSMENT WITH PATIENT'S SISTER. Window Unit Air Conditioning Mechanic, Realtionship and Phone Number SOUTH LINDA SISTER/CAREGIVER [phone] Healthcare Power of Retail Banker No Does Patient Have a POLST No Identifying Problems No Social Work Triggers Is A Social Work Consult Needed No Mandate Report Filed No Explanation Of Identifying Problems PATIENT IS A 70-YEAR-OLD MALE ADMITTED FOR COVID. PATIENT HAS PMHX OF CARDIAC DISORDERS, COPD, HYPERTENSION, AND RENAL DISEASE. Admitted From Home Pre-Admission Level Of Functioning Status Assist With ADL Level Of Functioning Comment PATIENT RECEIVES ASSISTANCE PREPARING MEALS, WITH TRANSPORTATION, AND GROCERY SHOPPING. Prior Resources/Services Used In Last 12 Months [facility] Prior Resources/Service Comments PER SISTER, PATIENT RECEIVES 146 HOURS MONTHLY FROM [facility]. Prior DME Cane Dialysis Comments N/A Living Situation Rents A Room Other Living Situation/Comment SISTER REPORTED THAT PATIENT LIVES WITH ROOMMATE. Patient Had Caregiver Yes Name and Contact Number Of Designated Caregiver SOUTH LINDA - [phone] Home Support No Caregiver Issues Financial Issues No Known Financial Issue Referral To The Financial Counselor Needed No Factors/Needs No D/C Needs Identified Pt/Rep Participated In Discharge Plan Yes Patient/Family Agress With Discharge Plan Yes Discharge Plan Comments TENTATIVE DISCHARGE PLAN IS FOR PATIENT TO RETURN HOME DC Plan Status Initiated
--- NOTE | 2020-10-26 14:50 | NUR ---
ATTEMPTED TO CALL BLOOD BANK FOR 3ND TIME REGARDING ORDERED BLOOD, WILL WAIT FOR CALL BACK.
--- NOTE | 2020-10-26 15:13 | NUR ---
PER LAB DOES NOT HAVE COVID 19 PLASMA YET
--- NOTE | 2020-10-26 15:13 | NUR ---
Kendra eaton in [facility] - 10/26/20 at 1514 by LOI RUBENS PIZANO DOES NOT HAVE COVID 19 PLASMA YET
--- NOTE | 2020-10-26 15:38 | NUR ---
PATIENT HAS BEEN SCREENED AND CATEGORIZED MODERATE NUTRITION RISK. PATIENT WILL BE SEEN WITHIN 3-5 DAYS OF ADMISSION. 10/28/20 10/30/[address]
--- NOTE | 2020-10-26 15:41 | NUR ---
DC PLANN[age] YRS OLD MALE PATIENT WAS ADMITTED FROM HOME WITH A DX OF COVID. PT HAS A HX OF COPD RECENTLY TESTED POSITIVE FOR COVID AND WAS DC FROM THE HOSPITAL. CXR SHOWED BILATERAL INTERSTITIAL PATCHY INFILTRATES. RAPID COVID TEST POSITIVE PCR IS PENDING. STARTED COVID PROTOCOL REMDESIVIR, DECADRON AND CONTINUED HOME MEDS. CONSULTED WITH PULMO. DC PLAN TO GO TO SNF VS HOME WITH HOME HEALTH CM TO FOLLOW Addendum: 11/01/20 at 1230 by Sherrie Nguyen REMAINS ON 15 L NON REBREATHER, O2 SAT 91%. PER PULMO - GOAL 02 SAT 88% TO 96%, PRONE POSITIONING TOLERATED.
--- NOTE | 2020-10-26 16:00 | NUR ---
PT ALERT AND AWAKE, BREATHING EVEN AND UNLABORED
--- NOTE | 2020-10-26 17:00 | NUR ---
PT GIVEN URINAL
--- NOTE | 2020-10-26 17:30 | NUR ---
PT GIVEN ORANGE JUICE AND WATER. PT NEEDS MET AT THIS TIME
--- NOTE | 2020-10-26 19:09 | NUR ---
REPORT PROVIDED BY FERN MICHAELS FOR CONTINUATION OF CARE.
--- NOTE | 2020-10-26 19:10 | NUR ---
PT PROVIDED W/ ICE WATER PER HIS REQUEST. PT SAO2 87% , PT DENIES ANY DISTRESS. NO OBSERVED ACUTE DISTRESS AT THIS TIME.
--- NOTE | 2020-10-26 19:50 | NUR ---
PAGED LEAD CARPENTER DOCTOR AT THIS TIME , REGARDING PT OXYGEN SATURATION AND MISSED DOSED OF DECADRON.
--- NOTE | 2020-10-26 19:53 | NUR ---
SPOKE W/ DR. YA , CALL RT FOR ASSESSMENT AND PLACE PT ON HIGH FLOW. ALSO, PER DR. YA ADMINISTER 0900 DECADRON DOSE TONIGHT.
--- NOTE | 2020-10-26 19:55 | NUR ---
SPOKE Qamar/ RT JOHN - HE WILL COME Addendum: 10/26/20 at 2001 by NICOLE SPOKE RT VONNIE - HE WILL COME AND ASSESS PT.
--- NOTE | 2020-10-26 20:00 | NUR ---
JOHN , RT AT BEDSIDE FOR RESPIRATORY ASSESSMENT. PT PLACED IN PRONE POSITION AND NEW NRB PLACED ON PT AT 15L . PER JOHN , MONITOR PT AND LET HIM KNOW IF PT OXYGEN CONTINUES TO DECREASE.
--- NOTE | 2020-10-26 20:01 | NUR ---
called to bedside due to pt desaturating. spo2 in 80s. assisted pt into prone position. spo2 in high 90s. pt tolerating well. RN at bed side. will continue to monitor pt.
--- NOTE | 2020-10-26 21:37 | NUR ---
Patient will be admitted to care of DR. SANDY. Admited to TELEMETRY. Will go to room 103A. Belongings list completed. Report to FERN LUQUE.
[2020-10-26] MEDS ORDERED: DEXAMETHASONE 10 MG/ML VIAL ONE (21:40)
[2020-10-26 21:55] VITALS: BP 147/66
--- NOTE | 2020-10-26 21:55 | NUR ---
RECEIVED PATIENT FROM ER VIA GURNEY. AAOX4. RESPIRATIONS TACHYPNEIC, LABORED. CONTINUES ON O2 15L VIA NRB, O2SAT 94%. SKIN ASSESSMENT COMPLETED. SKIN INTACT. SALINE LOCK TO RIGHT HAND 20G PATENT/INTACT. NO C/O PAIN. NO S/S ACUTE DISTRESS. ABDOMEN SOFT, NONTENDER, NONDISTENDED. BOWEL SOUNDS ACTIVE X4 QUADRANTS. PATIENT IS CONTINENT OF B/B. PLAN OF CARE DISCUSSED. PATIENT ORIENTED TO ROOM/STAFF/CALL LIGHT. MRSA SCREEN COMPLETED. CALL LIGHT WITHIN REACH. SAFETY PRECAUTIONS IN PLACE. ISOLATION PRECAUTIONS OBSERVED BY ALL STAFF.
--- NOTE | 2020-10-26 21:55 | NUR ---
PT TRANSFERRED VIA GURNEY BY RN & EMT TO ER BED 103A , REBEL SHIRLEY MADE AWARE OF PT PLACED IN BED.
--- NOTE | 2020-10-26 23:00 | NUR ---
PATIENT PRONE, RESTING COMFORTABLY. NO C/O PAIN. NO S/S ACUTE DISTRESS. CALL LIGHT WITHIN REACH. ISOLATION PRECAUTIONS OBSERVED BY ALL STAFF.
[2020-10-27] VITALS: BP 117/73
--- NOTE | 2020-10-27 01:00 | NUR ---
MADE ROUNDS. PATIENT IS ASLEEP. NO S/S ACUTE DISTRESS. CALL LIGHT WITHIN REACH. ISOLATION PRECAUTIONS OBSERVED BY ALL STAFF.
--- NOTE | 2020-10-27 03:00 | NUR ---
PATIENT IS ASLEEP. NO S/S ACUTE DISTRESS. CALL LIGHT WITHIN REACH. SAFETY PRECAUTIONS IN PLACE. ISOLATION PRECAUTIONS OBSERVED BY ALL STAFF.
[2020-10-27 04:00] VITALS: BP 122/82
--- NOTE | 2020-10-27 05:30 | NUR ---
SPOKE TO PATIENT'S SISTER SOUTH TO UPDATE HER ON HER BROTHER'S CARE. PATIENT IS ASLEEP. NO S/S ACUTE DISTRESS. CALL LIGHT WITHIN REACH. ISOLATION PRECAUTIONS OBSERVED BY ALL STAFF.
[2020-10-27 07:07] LABS: BASOPHILS % (AUTO) 0.3 % (0.0-2.0); HEMATOCRIT 54.8 % (36-52); HEMOGLOBIN 18.2 g/dL (12.0-18.0); LYMPHOCYTES # (AUTO) 0.5 K/uL (2.0-11.5); LYMPHOCYTES % (AUTO) 5.7 % (20.5-51.1); MEAN CORPUSCULAR HEMOGLOBIN 28 pg (27-31); MEAN CORPUSCULAR HGB CONC 33 g/dL (33-37); MONOCYTES # (AUTO) 0.4 K/uL (0.8-1.0); MONOCYTES % (AUTO) 4.5 % (1.7-9.3); NEUTROPHILS # (AUTO) 7.4 K/uL (1.8-7.7); NEUTROPHILS % (AUTO) 89.5 % (42.2-75.2); PLATELET COUNT (AUTO) 226 K/uL (140-450); RED BLOOD CELL COUNT(AUTO) 6.61 MIL/uL (4.20-6.10); RED CELL DISTRIBUTION WIDTH 16.9 % (11.6-13.7); WHITE BLOOD COUNT (AUTO) 8.3 K/uL (4.8-10.8)
--- NOTE | 2020-10-27 07:30 | NUR ---
RECEIVED PT AWAKE, ON PRONE POSITION, NO SOB NOTED. NO SIGNS OF PAIN AT THIS TIME. BED ON LOW POSITION, WITH 3 SIDE RAILS RAISED UP, CALL LIGHT WITHIN REACH. WILL CONTINUE TO MONITOR PT.
[2020-10-27 07:39] LABS: ALBUMIN 3.1 g/dL (3.4-5.0); CARBON DIOXIDE 24.9 mmol/L (21-32); CREATININE 1.6 mg/dL (0.6-1.3); POTASSIUM 4.9 mmol/L (3.5-5.1); TOTAL BILIRUBIN 0.8 mg/dL (0.0-1.0)
[2020-10-27 08:00] VITALS: BP 133/57
--- NOTE | 2020-10-27 09:00 | NUR ---
PHYSICAL THERAPY ON GOING AT THE BEDSIDE.
[2020-10-27] MEDS: carvediloL 3.125 MG TAB PO SCH ×2 (10:20→22:56)
[2020-10-27] MEDS: lisinopriL 5 MG TAB PO SCH (10:21)
[2020-10-27] MEDS: APIXABAN 2.5 MG TAB PO SCH ×2 (10:22→22:57)
[2020-10-27] MEDS: DEXAMETHASONE 4 MG/ML VIAL IVP SCH (10:27)
--- NOTE | 2020-10-27 11:00 | NUR ---
PT RESTING COMFORTABLY. NO SOB NOTED. ENCOURAGED TO PRONE SELF.
[2020-10-27 12:00] VITALS: BP 155/69
[2020-10-27] MEDS: REMDESIVIR (EUA) 100 MG in NACL 0.9% 100 ML IV SCH (13:22)
--- NOTE | 2020-10-27 15:15 | NUR ---
PT TALKING TO THE PHONE, ON PRONE POSITION. NO SOB NOTED.
[2020-10-27 16:00] VITALS: BP 138/80
--- NOTE | 2020-10-27 19:00 | NUR ---
PT READY TO GO HOME, WAITING FOR FAMILY TO BRING THE PORTABLE OXYGEN. ARM BANDS AND IV REMOVED, CANNULA TIP INTACT. DISCHARGE INSTRUCTIONS GIVEN TO PT WHICH VERBALIZED FULL UNDERSTANDING OF THE INSTRUCTIONS GIVEN AND THE NEED TO FOLLOW UP WITH OWN PCP WITHIN 3-5 DAYS. WILL ENDORSE TO NEXT SHIFT NURSE FOR CONTINUITY OF CARE. Addendum: 10/27/20 at 2003 by Cece Bain RN PLS DISREGARD ABOVE NOTES, WRONG PT.
--- NOTE | 2020-10-27 19:00 | NUR ---
PT RESTING COMFORTABLY, ON PRONE POSITION, NO SOB NOTED. WILL ENDORSE TO NEXT SHIFT NURSE FOR CONTINUITY OF CARE.
--- NOTE | 2020-10-27 19:15 | NUR ---
RECEIVED ENDORSEMENT FROM AM SHIFT RN. PT IS AOX4, NO DISTRESS, NO SOB, ON PRONE POSITION, ON 15L NRM, PT IS AMBULATORY PER ENDORSED, DROPLET ISO OBSERVED, SAFETY MEASURES IN PLACE, PLAN OF CARE DISCUSSED, CALL LIGHT WITHIN REACH.
[2020-10-27 20:00] VITALS: BP 119/79
--- NOTE | 2020-10-27 22:56 | NUR ---
DUE MEDS GIVEN ORDERED, TOLERATED WELL, CALL LIGHT WITHIN REACH.
[2020-10-28] VITALS: BP 113/79
--- NOTE | 2020-10-28 00:20 | NUR ---
CHECKED PT, NO SOB, NO DISTRESS, CALL LIGHT WITHIN REACH.
--- NOTE | 2020-10-28 03:22 | NUR ---
PT ASLEEP, NO DISTRESS, CALL LIGHT WITHIN REACH.
[2020-10-28 04:00] VITALS: BP 115/76
[2020-10-28 06:56] LABS: BASOPHILS % (AUTO) 0.1 % (0.0-2.0); HEMATOCRIT 55.1 % (36-52); HEMOGLOBIN 18.2 g/dL (12.0-18.0); LYMPHOCYTES # (AUTO) 0.6 K/uL (2.0-11.5); LYMPHOCYTES % (AUTO) 6.2 % (20.5-51.1); MEAN CORPUSCULAR HEMOGLOBIN 28 pg (27-31); MEAN CORPUSCULAR HGB CONC 33 g/dL (33-37); MEAN CORPUSCULAR VOLUME 82.9 fL (80-94); MONOCYTES # (AUTO) 0.8 K/uL (0.8-1.0); MONOCYTES % (AUTO) 8.7 % (1.7-9.3); NEUTROPHILS # (AUTO) 7.8 K/uL (1.8-7.7); PLATELET COUNT (AUTO) 251 K/uL (140-450); RED BLOOD CELL COUNT(AUTO) 6.64 MIL/uL (4.20-6.10); RED CELL DISTRIBUTION WIDTH 17.2 % (11.6-13.7); WHITE BLOOD COUNT (AUTO) 9.2 K/uL (4.8-10.8)
[2020-10-28 07:13] LABS: ANION GAP 17.4 (8-16); CARBON DIOXIDE 20.8 mmol/L (21-32); CREATININE 1.2 mg/dL (0.6-1.3); POTASSIUM 4.2 mmol/L (3.5-5.1); TOTAL BILIRUBIN 0.9 mg/dL (0.0-1.0)
--- NOTE | 2020-10-28 07:45 | NUR ---
PT IS STABLE. ENDORSED TO AM SHIFT RN.
[2020-10-28 08:00] VITALS: BP 110/75
--- NOTE | 2020-10-28 08:45 | NUR ---
NURSE REPORT AND ASSESSMENT Report obtained from night nurse AMARIS and this nurse assumed care of patient until 1930. VS taken by SILK TOP HAT BODY MAKER- O2 sat 83%. After he got up with PT and encouraged to breath- O2 sat 92%. Afeb. Tele ST 105 with BBB. Using O2 15 l/min per NRM. Refused to eat breakfast, due to SOB.
[2020-10-28] MEDS: DEXAMETHASONE 4 MG/ML VIAL IVP SCH (10:07)
[2020-10-28] MEDS: carvediloL 3.125 MG TAB PO SCH ×2 (10:12→20:39)
[2020-10-28] MEDS: lisinopriL 5 MG TAB PO SCH (10:13)
[2020-10-28] MEDS: APIXABAN 2.5 MG TAB PO SCH ×2 (10:14→20:40)
[2020-10-28 12:00] VITALS: BP 113/77
[2020-10-28] MEDS: REMDESIVIR (EUA) 100 MG in NACL 0.9% 100 ML IV SCH (15:52)
[2020-10-28 16:00] VITALS: BP 119/95
--- NOTE | 2020-10-28 17:00 | NUR ---
MD CALL was notified of O2 sat 86% at 1600. Patient need Bipap or Hi flow O2. RT notified to check patient and give as needed.
--- NOTE | 2020-10-28 19:40 | NUR ---
RECEIVED REPORT FROM TONY VUONG RN. PT AOX4 ON 15L NRB. NO S/S RESPIRATORY DISTRESS. NO C/O PAIN AT THIS TIME. IV SITE 20G R HAND, PATENT AND INTACT, S.L. SAFETY MEASURES IN PLACE. CALL LIGHT WITHIN REACH. WILL CONTINUE TO MONITOR.
[2020-10-28 20:00] VITALS: BP 125/65
--- NOTE | 2020-10-28 20:40 | NUR ---
ADMINISTERED SCHEDULED MEDS, TOLERATED WELL. WILL CONTINUE TO MONITOR
--- NOTE | 2020-10-28 23:55 | NUR ---
PT ASLEEP IN BED. RESPIRATIONS EVEN AND UNLABORED. NO DISTRESS NOTED. WILL CONTINUE TO MONITOR
[2020-10-29] VITALS: BP 101/75
[2020-10-29 04:00] VITALS: BP 126/87
--- NOTE | 2020-10-29 04:10 | NUR ---
PT ON PRONE POSITION IN BED. O2 SAT 85%. DENIES PAIN, DENIES SOB. NO DISTRESS NOTED. WILL CONTINUE TO MONITOR
--- NOTE | 2020-10-29 07:25 | NUR ---
ENDORSED PT TO DAY RN FOR CONTINUITY OF CARE. PT IS IN STABLE CONDITION
[2020-10-29 08:00] VITALS: BP 121/80
--- NOTE | 2020-10-29 08:30 | NUR ---
NURSE REPORT AND ASSESSMENT Report obtained from night nurse Ursula and this nurse assumed care until 1930. Recieved patient in stable condition. Refused to eat breakfast, but takes fluids. Tele SR/BBB 93. O2 at 15 l/min NRM- O2 sat 92%. No c/o pain or discomfort.
[2020-10-29 08:39] LABS: BASOPHILS % (AUTO) 0.2 % (0.0-2.0); EOSINOPHILS % (AUTO) 0.1 % (0.0-4.0); HEMOGLOBIN 17.8 g/dL (12.0-18.0); LYMPHOCYTES # (AUTO) 0.4 K/uL (2.0-11.5); LYMPHOCYTES % (AUTO) 3.3 % (20.5-51.1); MEAN CORPUSCULAR HEMOGLOBIN 27 pg (27-31); MEAN CORPUSCULAR HGB CONC 33 g/dL (33-37); MEAN CORPUSCULAR VOLUME 82.7 fL (80-94); MONOCYTES # (AUTO) 0.8 K/uL (0.8-1.0); NEUTROPHILS # (AUTO) 12.1 K/uL (1.8-7.7); NEUTROPHILS % (AUTO) 90.4 % (42.2-75.2); PLATELET COUNT (AUTO) 291 K/uL (140-450); RED BLOOD CELL COUNT(AUTO) 6.53 MIL/uL (4.20-6.10); RED CELL DISTRIBUTION WIDTH 16.8 % (11.6-13.7); WHITE BLOOD COUNT (AUTO) 13.4 K/uL (4.8-10.8)
[2020-10-29 08:43] LABS: ALBUMIN 2.9 g/dL (3.4-5.0); ANION GAP 19.5 (8-16); CARBON DIOXIDE 19.5 mmol/L (21-32); CREATININE 1.1 mg/dL (0.6-1.3); TOTAL BILIRUBIN 0.9 mg/dL (0.0-1.0)
[2020-10-29] MEDS: carvediloL 3.125 MG TAB PO SCH ×2 (09:55→21:37)
[2020-10-29] MEDS: lisinopriL 5 MG TAB PO SCH (09:56)
[2020-10-29] MEDS: APIXABAN 2.5 MG TAB PO SCH ×2 (10:00→21:34)
[2020-10-29] MEDS: DEXAMETHASONE 4 MG/ML VIAL IVP SCH (10:01)
[2020-10-29 12:00] VITALS: BP 118/81
[2020-10-29] MEDS: REMDESIVIR (EUA) 100 MG in NACL 0.9% 100 ML IV SCH (14:00)
[2020-10-29 16:00] VITALS: BP 107/76
--- NOTE | 2020-10-29 16:27 | NUR ---
10/29/20 RD INITIAL ASSESSMENT COMPLETED PLEASE REFER TO NUTRITION ASSESSMENT UNDER CARE ACTIVITY FOR ESTIMATED NUTRITIONAL NEEDS. 1. CONTINUE CARDIAC MECHANICAL SOFT DIET TOLERATED 2. CONTINUE ENSURE TID 3. ENCOURAGE PO INTAKE 4. RD TO FOLLOW-UP 2-3 DAYS, HIGH RISK SARAH HORTON, RD
--- NOTE | 2020-10-29 19:30 | NUR ---
RECEIVED REPORT AT BEDSIDE FROM JESSICA FOR CONTINUITY OF CARE, PT IN STABLE CONDITION.
--- NOTE | 2020-10-29 19:30 | NUR ---
ENDORSEMENT NURSE REPORT ENDORSED PT TO NIGHT RN FOR CONTINUITY OF CARE. PT IS IN STABLE CONDITION
[2020-10-29 20:00] VITALS: BP 134/81
--- NOTE | 2020-10-29 20:00 | NUR ---
PT IN BED AOX4 WITH 15 LITERS NON REBREATHER MASK. PT IS SALINE LOCKED, HE HAS NO C/O VOICED AT THIS TIME. V/S FOLLOWS: T 97.9 P 101 R 22 B/P 134/81 02 90%. ALL FALLS AND DROPLET PRECAUTIONS IN PLACE.
--- NOTE | 2020-10-29 21:30 | NUR ---
PT GIVEN ORDERED MEDS OF COREG AND ELIQUIS, EDUCATION REGARDING MEDICATION AND IT S PURPOSE PROVIDED AT BEDSIDE, PT NODDED IN VERBAL ACKNOWLEDGEMENT. PLATELETS ARE 291. PT HAS NO C/O VOICED AT THIS TIME.
[2020-10-30] VITALS: BP_SYST 116; BP_DIAS 80; BP_DIAS 82
--- NOTE | 2020-10-30 | NUR ---
PT IN BED SLEEPING WITH 15 LITERS NON REBREATHER. IV SITE INTACT AND SALINE LOCKED. V/S FOLLOWS: T 98.1 P 100 R 22 B/P 116/80 02 88%. ALL FALLS AND DROPLET PRECAUTIONS IN PLACE.
[2020-10-30 04:00] VITALS: BP 117/84
--- NOTE | 2020-10-30 04:00 | NUR ---
PT IN BED RESTING WITH EYES CLOSED AND CONTINUES 15 LITERS ON NON REBREATHER. NO S/S OF PAIN OR DISTRESS NOTED.
[2020-10-30 06:59] LABS: BASOPHILS # (AUTO) 0.1 K/uL (0.00-0.22); BASOPHILS % (AUTO) 0.4 % (0.0-2.0); HEMOGLOBIN 18.3 g/dL (12.0-18.0); LYMPHOCYTES # (AUTO) 0.4 K/uL (2.0-11.5); LYMPHOCYTES % (AUTO) 2.3 % (20.5-51.1); MEAN CORPUSCULAR HEMOGLOBIN 27 pg (27-31); MEAN CORPUSCULAR HGB CONC 33 g/dL (33-37); MEAN CORPUSCULAR VOLUME 83.4 fL (80-94); MONOCYTES # (AUTO) 0.7 K/uL (0.8-1.0); MONOCYTES % (AUTO) 4.3 % (1.7-9.3); NEUTROPHILS # (AUTO) 14.3 K/uL (1.8-7.7); PLATELET COUNT (AUTO) 298 K/uL (140-450); RED BLOOD CELL COUNT(AUTO) 6.71 MIL/uL (4.20-6.10); WHITE BLOOD COUNT (AUTO) 15.4 K/uL (4.8-10.8)
[2020-10-30 07:50] LABS: ALBUMIN 2.9 g/dL (3.4-5.0); ANION GAP 19.8 (8-16); CARBON DIOXIDE 22.7 mmol/L (21-32); CREATININE 1.2 mg/dL (0.6-1.3); POTASSIUM 5.5 mmol/L (3.5-5.1); TOTAL BILIRUBIN 0.9 mg/dL (0.0-1.0)
[2020-10-30 08:00] VITALS: BP 124/90
[2020-10-30 08:00] LABS: BILIRUBIN,DIRECT 0.2 mg/dL (0.0-0.3); TOTAL BILIRUBIN 0.9 mg/dL (0.0-1.0)
--- NOTE | 2020-10-30 08:15 | NUR ---
NURSE REPORT AND ASSESSMENT Report obtained from night nurse Evelia at 0715 and this nurse assume care of patient. VSS. Telemetry shows ST 117. O2 at 15 l/min via NRM. No c/o pain or discomfort.
[2020-10-30] MEDS: DEXAMETHASONE 4 MG/ML VIAL IVP SCH (09:14)
[2020-10-30] MEDS: APIXABAN 2.5 MG TAB PO SCH ×2 (09:20→20:46)
[2020-10-30] MEDS: carvediloL 3.125 MG TAB PO SCH ×2 (09:25→20:44)
[2020-10-30] MEDS: lisinopriL 5 MG TAB PO SCH (09:26)
[2020-10-30] MEDS: REMDESIVIR (EUA) 100 MG in NACL 0.9% 100 ML IV SCH (12:00)
[2020-10-30 14:00] VITALS: BP 108/77
[2020-10-30] MEDS ORDERED: REMDESIVIR (EUA) 100 MG in NACL 0.9% 100 ML IV SCH (15:30)
[2020-10-30 16:00] VITALS: BP 95/53
--- NOTE | 2020-10-30 19:30 | NUR ---
ENDORSEMENT REPORT ENDORSED PT TO NIGHT FERN BRYSON FOR CONTINUITY OF CARE. PT IS IN STABLE CONDITION
--- NOTE | 2020-10-30 19:31 | NUR ---
RECEIVED REPORT FROM CAROLANN RNYASMANI. PT AOX4 ON 15L NRB. NO S/S RESPIRATORY DISTRESS. NO C/O PAIN AT THIS TIME. IV SITE R HAND 20G, PATENT AND INTACT, S.L. SAFETY MEASURES IN PLACE. CALL LIGHT WITHIN REACH. WILL CONTINUE TO MONITOR
[2020-10-30 20:00] VITALS: BP 103/60
--- NOTE | 2020-10-30 20:50 | NUR ---
ADMINISTERED SCHEDULED MEDICATIONS, TOLERATED WELL. WILL CONTINUE TO MONITOR
--- NOTE | 2020-10-30 22:50 | NUR ---
ASSISTED PT WITH DRINKING WATER. TOLERATED WELL. 15L NRB PLACED BACK ON. NO DISTRESS NOTED. WILL CONTINUE TO MONITOR
[2020-10-31] VITALS: BP 109/81
--- NOTE | 2020-10-31 00:35 | NUR ---
PT ASLEEP IN BED. RESPIRATIONS EVEN AND UNLABORED. WILL CONTINUE TO MONITOR
[2020-10-31 04:00] VITALS: BP 107/65
--- NOTE | 2020-10-31 05:25 | NUR ---
CLEANED CHANGED REPOSITIONED PT, TOLERATED WELL. WILL CONTINUE TO MONITOR
--- NOTE | 2020-10-31 07:30 | NUR ---
ENDORSED PT TO DAY RN FOR CONTINUITY OF CARE. PT IS IN STABLE CONDITION
--- NOTE | 2020-10-31 07:30 | NUR ---
RECEIVED PATIENT FROM NIGHT NURSE. PATIENT IN BED SLEEPING, NO ACUTE S/S DISTRESS. RESP EVEN AND UNLABORED ON 15L NONREBREATHER. RH20G SL. HOB ELEVATED. DROPLET PRECAUTION OBSERVED. SAFETY MEASURES IN PLACE. CALL LIGHT WITHIN REACH. WILL CONTINUE TO MONITOR.
[2020-10-31 08:00] VITALS: BP 106/73
[2020-10-31] MEDS: APIXABAN 2.5 MG TAB PO SCH ×2 (10:09→21:07)
[2020-10-31] MEDS: DEXAMETHASONE 4 MG/ML VIAL IVP SCH (10:10)
[2020-10-31] MEDS: carvediloL 3.125 MG TAB PO SCH ×2 (10:10→21:09)
[2020-10-31] MEDS: lisinopriL 5 MG TAB PO SCH (10:11)
[2020-10-31] MEDS: MULTIVITAMIN 1 TAB PO SCH (10:11)
--- NOTE | 2020-10-31 10:12 | NUR ---
PATIENT IN BED AWAKE AND ALERT. RESP EVEN AND UNLABORED ON 15L NONREBREATHER, O2SAT 91%. DENIED OF PAIN AT THIS TIME. PERSONAL CARE RENDERED. PATIENT TOLERATED WELL. RH 20G INTACT AND PATENT, SL. MORNING ROUTINE MEDICATIONS GIVEN. PATIENT TOLERATED WELL. PATIENT ABLE TO MAKE NEEDS KNOWN AND FOLLOW COMMANDS. HOB ELEVATED. SAFETY MEASURES IN PLACE. CALL LIGHT WITHIN REACH. WILL CONTINUE TO MONITOR.
[2020-10-31 12:00] VITALS: BP 138/72
--- NOTE | 2020-10-31 12:05 | NUR ---
PATIENT IN BED SLEEPING, CHEST NOTED RISING. NO ACUTE S/S DISTRESS. CALL LIGHT WITHIN REACH. WILL CONTINUE TO MONITOR.
--- NOTE | 2020-10-31 12:35 | NUR ---
PATIENT IN BED SLEEPING, CHEST NOTED RISING. RESP EVEN AND UNLABORED ON 15L NONREBREATHER, O2SAT 92%. NO ACUTE S/S DISTRESS. CALL LIGHT WITHIN REACH. WILL CONTINUE TO MONITOR. Addendum: 10/31/20 at 1905 by Albino Murray RN TIME OF DOCUMENTATION [id number]
[2020-10-31 16:00] VITALS: BP 112/79
--- NOTE | 2020-10-31 17:10 | NUR ---
PATIENT IN BED AWAKE AND ALERT. NO NOTED ACUTE S/S DISTRESS. ABLE TO MAKE NEEDS KNOWN. CALL LIGHT WITHIN REACH. WILL CONTINUE TO MONITOR.
--- NOTE | 2020-10-31 19:16 | NUR ---
ENDORSED PATIENT TO NIGHT NURSE. PATIENT IN STABLE CONDITION.
--- NOTE | 2020-10-31 19:20 | NUR ---
RECEIVED REPORT FROM CAROLANN MORENO. PT ASLEEP IN BED. NO S/S RESPIRATORY DISTRESS ON 15L NRB. IV SITE R HAND 20G PATENT AND INTACT, S.L. SAFETY MEASURES IN PLACE. CALL LIGHT WITHIN REACH. WILL CONTINUE TO MONITOR
[2020-10-31 20:00] VITALS: BP 112/81
--- NOTE | 2020-10-31 21:10 | NUR ---
ADMINISTERED SCHEDULED MEDS. PT TOLERATED WELL. WILL CONTINUE TO MONITOR
[2020-11-01] VITALS: BP 102/48
--- NOTE | 2020-11-01 02:00 | NUR ---
PT ASLEEP IN BED. EASILY AROUSABLE. DENIES PAIN. DENIES SOB. RESPIRATIONS EVEN AND UNLABORED. WILL CONTINUE TO MONITOR
--- NOTE | 2020-11-01 03:54 | NUR ---
PT AWAKE IN BED. EATING ICE CHIPS AND DRINKING WATER. NRB MASK PLACED BACK ON. NO DISTRESS NOTED. WILL CONTINUE TO MONITOR
[2020-11-01 04:00] VITALS: BP 114/81
--- NOTE | 2020-11-01 06:35 | NUR ---
PT ASLEEP IN BED. RESPIRATIONS EVEN AND UNLABORED. O2 SAT 90%. WILL CONTINUE TO MONITOR
--- NOTE | 2020-11-01 07:30 | NUR ---
ENDORSED PT TO DAY RN FOR CONTINUITY OF CARE. PT IS IN STABLE CONDITION
[2020-11-01 08:00] VITALS: BP 116/83
[2020-11-01] MEDS: DEXAMETHASONE 4 MG/ML VIAL IVP SCH (08:49)
[2020-11-01] MEDS: MULTIVITAMIN 1 TAB PO SCH (08:49)
[2020-11-01] MEDS: carvediloL 3.125 MG TAB PO SCH ×2 (08:49→20:58)
[2020-11-01] MEDS: APIXABAN 2.5 MG TAB PO SCH ×2 (08:50→20:59)
[2020-11-01] MEDS: lisinopriL 5 MG TAB PO SCH (08:50)
--- NOTE | 2020-11-01 08:51 | NUR ---
SCHEDULED MORNING MEDICATIONS GIVEN, EDUCATION PROVIDED. PATIENT VERBALIZED UNDERSTANDING AND TOLERATED WELL. PATIENT KEPT COMFORTABLE. ON 15L NRB. INFORMED PATIENT TO TAKE DEEP BREATH AND RELAX. WILL CONTINUE TO MONITOR.
--- NOTE | 2020-11-01 11:03 | NUR ---
PATIENT RESTING IN BED WITH RIGHT LATERAL POSITION, AWAKABLE BY VOICE. ABLE TO MAKE NEEDS KNOWN. NO ACUTE DISTRESS NOTED. SAFETY MEASURES IN PLACE, WILL CONTINUE TO MONITOR.
[2020-11-01 12:00] VITALS: BP 110/76
--- NOTE | 2020-11-01 13:21 | NUR ---
PATIENT RESTING IN BED, RR EVEN WITH 15L NRB. NO SOB NOTED. SAFETY MEASURES IN PLACE, WILL CONTINUE TO MONITOR.
--- NOTE | 2020-11-01 14:47 | NUR ---
11/01/20 RD INITIAL ASSESSMENT COMPLETED PLEASE REFER TO NUTRITION ASSESSMENT UNDER CARE ACTIVITY FOR ESTIMATED NUTRITIONAL NEEDS. 1. CONTINUE CARDIAC MECHANICAL SOFT DIET TOLERATED 2. PROSOURCE TID WILL BE PROVIDED 3. FOOD PREFERENCES WILL BE PROVIDED SUCH ICE CREAM AND POPSICLES 4. ENCOURAGE PO INTAKE 5. RD TO FOLLOW-UP 2-3 DAYS, HIGH RISK DEMI HORTON RD Addendum: 11/01/20 at [address] *CORRECTION: RD FOLLOW UP COMPLETED, NOT INITIAL ASSESSMENT
--- NOTE | 2020-11-01 15:33 | NUR ---
ENCOURAGED PATIENT TO TAKE DEEP BREATH AND RELAX, PATIENT VERBALIZED UNDERSTANDING. WILL CONTINUE TO MONITOR.
--- NOTE | 2020-11-01 17:13 | NUR ---
PATIENT RESTING IN BED, ENCOURAGED PATIENT TO TAKE DEEP BREATH. PATIENT DOES NOT FOLLOW. WILL TRY TO REINFORCE REGARDING TAKE DEEP BREATH AND PRONE POSITION.
--- NOTE | 2020-11-01 19:32 | NUR ---
ENDORSED PATIENT TO BAND LEADER RN FOR CONTINUITY OF CARE. PATIENT RESTING IN BED WITH RIGHT LATERAL POSITION IN STABLE CONDITION.
--- NOTE | 2020-11-01 19:45 | NUR ---
RECEIVED ENDORSEMENT FROM AM SHIFT RN, PT ON 15L NRB, NO SOB, NO DISTRESS, SAFETY MEASURES IN PLACE, PLAN OF CARE DISCUSSED, CALL LIGHT WITHIN REACH.
[2020-11-01 20:00] VITALS: BP 104/75
--- NOTE | 2020-11-01 21:17 | NUR ---
PT AWAKE, NO SOB, DUE MEDS GIVEN ORDERED, TOLERATED WELL, ALL NEEDS ATTENDED, CALL LIGHT WITHIN REACH.
[2020-11-02] VITALS: BP 95/71
--- NOTE | 2020-11-02 | NUR ---
V/S TAKEN, NO SOB, KEPT WARM AND COMFORTABLE, CALL LIGHT WITHIN REACH.
[2020-11-02 04:00] VITALS: BP 113/87
--- NOTE | 2020-11-02 07:35 | NUR ---
PT STABLE, ALL NEEDS ATTENDED, KEPT COMFORTABLE, ENDORSED TO AM SHIFT RN FOR CONTINUITY OF CARE.
[2020-11-02 08:00] VITALS: BP 98/72
[2020-11-02] MEDS: carvediloL 3.125 MG TAB PO SCH (09:00)
[2020-11-02] MEDS: lisinopriL 5 MG TAB PO SCH (09:00)
[2020-11-02] MEDS: DEXAMETHASONE 4 MG/ML VIAL IVP SCH (09:43)
[2020-11-02] MEDS: MULTIVITAMIN 1 TAB PO SCH (09:43)
--- NOTE | 2020-11-02 09:49 | NUR ---
SCHEDULED MEDICATIONS GIVEN. EDUCATION PROVIDED. PATIENT IS ANXIOUS. RT TRIED TO SWITCH NRB TO OXIMIZER BUT PATIENT GOT ANXIOUS AND STATED THAT HE CANNOT BREATHE. CALM THE PATIENT DOWN AND ENCOURAGED TO TAKE DEEP BREATH. PATIENT STILL VERY ANXIOUS. WILL INFORM MD.
--- NOTE | 2020-11-02 09:51 | NUR ---
UNABLE TO CHANGE PTS FIO2 TO OXYIZMER TO 9LNC PT DESAT TO 85% AND WAS IN DISTRESS
--- NOTE | 2020-11-02 11:50 | NUR ---
PATIENT IS VERY ANXIOUS AND STATED THAT HE CANNOT BREATHE. TRIED TO CALM THE PATIENT DOWN. INFORMED PATIENT TO TAKE DEEP BREATHE. HOWEVER, NOT HELPFUL. RT CALLED. WILL COME TO CHECK THE PATIENT.
--- NOTE | 2020-11-02 11:51 | NUR ---
PATIENT'S O2 SAT 75% WITH 15L NRB. RT CALLED. YAZMIN CAME TO CHECK ON THE PATIENT.
[2020-11-02 12:00] VITALS: BP 96/68
--- NOTE | 2020-11-02 13:50 | NUR ---
ROCK WORKER CALLED AT ROOM 103A PT WAS UNRESPONSIVE AND VERY COLD TO THE TOUCH STARTED BAGGING PT WITH BVM WITH 100% FIO2 PT STARTING RESPONDING TO VERBAL COMMANDS PLACED PT ON NRB AT 15L AT 100%. AT 1429 JOVANY LOZANO CALLED PT MANASA DOWN AND WAS UNRESPONSIVE BAGGED PT WITH BVM WITH 100% FIO2 AND CPR WAS STARTED AND ACLS DRUGS GIVEN AND DR. ORDAZ AT BEDSIDE AND AT 1434 PT WAS INTUBATED BY WITH 7.5 ETT SECURED AT 22CM AT THE LIP PT WAS THEN PLACED ON VENT. AT 1458 JOVANY LOZANO WAS CALLED AGAIN DUE TO PT MANASA DOWN AGAIN CPR AND ACLS DRUGS GIVEN DR. ORDAZ AT BEDSIDE PT BEING BAGGED WITH 100% FIO2 BY BVM AT 1506 ENDED THE CODE
--- NOTE | 2020-11-02 13:55 | NUR ---
RAPID RESPONSE CALLED, PATIENT'S HR 43, NOT QUITE RESPONSIVE. BS CHECKED 156.
[2020-11-02] MEDS ORDERED: INTUBATION KIT MC ONE (14:33)
[2020-11-02] MEDS ORDERED: PROPOFOL 1000 MG/100 ML PREMIX 100 ML IV ONE (14:36)
== END 2020-11-03 12:00 | DRG 720 ==
LOC: MED 13:24 → MTU 16:28 → MMU 10-26 20:23
PROVIDERS: ADMIT Hospitalist; ATTEND Hospitalist
PROC: XW033E5 Introduction of Remdesivir Anti-infective into Peripheral Vein, Percutaneous Approach, New Technology Group 5 (ICD-10-PCS; principal; 2020-10-30)
DX: A41.9 Sepsis, unspecified organism (principal); U07.1 COVID-19; J96.01 Acute respiratory failure with hypoxia; J12.89 Other viral pneumonia; I48.91 Unspecified atrial fibrillation; I25.10 Atherosclerotic heart disease of native coronary artery without angina pectoris; Z79.01 Long term (current) use of anticoagulants; E78.5 Hyperlipidemia, unspecified; R74.01 Elevation of levels of liver transaminase levels; J44.0 Chronic obstructive pulmonary disease with (acute) lower respiratory infection; J44.1 Chronic obstructive pulmonary disease with (acute) exacerbation; I10 Essential (primary) hypertension; Z87.891 Personal history of nicotine dependence
CPT/HCPCS: 36415; 36600; 71045; 80053; 80076; 82550; 82553; 82728; 82803; 82948; 83605; 83615; 83880; 84484; 85025; 85379; 85384; 85610; 85730; 86140; 86900; 86901; 86920; 87040; 87081; 92950; 93005; 97110; 97112; 97116; 97161-GP; 97530; 99285; J0696; J1100; J2704; U0003